=== PATIENT | female | born 1930 | race Asian ===

== ENCOUNTER 2017-08-17 08:00 | Outpatient (CLI) | payer MEDICARE, OTHER | END 2017-08-17 08:01 | disposition home or self-care (01) | LOC: LAB.R 08:00 | PROVIDERS: ATTEND Family Medicine | DX: N39.0 Urinary tract infection, site not specified (principal) | CPT/HCPCS: 87086 ==

== ENCOUNTER 2017-09-19 08:00 | Outpatient (CLI) | payer MEDICARE, OTHER | END 2017-09-19 08:01 | disposition home or self-care (01) | LOC: LAB.R 08:00 | PROVIDERS: ATTEND Family Medicine | DX: N39.0 Urinary tract infection, site not specified (principal) | CPT/HCPCS: 87086 ==

== ENCOUNTER 2017-10-12 11:21 | Outpatient (CLI) | payer MEDICARE, OTHER ==
[2017-10-12] MEDS ORDERED: IOPAMIDOL-300 100 ML VIAL ONE (11:43)
[2017-10-12] MEDS ORDERED: IOPAMIDOL-300 50 ML VIAL ONE (11:43)
[2017-10-12 12:54] LABS: ALBUMIN 3.4 g/dL (3.2-5.5); ALBUMIN/GLOBULIN RATIO 0.9 (1.0-2.2); ALKALINE PHOSPHATASE 83 IU/L (42-121); ALT ALANINE AMINOTRANSFERASE < 10 IU/L (10-60); AST ASPARTATE AMINOTRANSFERASE 14 IU/L (10-42); BILIRUBIN,TOTAL 0.6 mg/dL (0.2-1.0); BUN - BLOOD UREA NITROGEN 20 mg/dL (6-20); CALCIUM 8.7 mg/dL (8.5-10.3); CARBON DIOXIDE - CO2 28 mmol/L (21-32); CHLORIDE 100 mmol/L (101-111); CREATININE 0.9 mg/dL (0.4-1.0); GFR - MDRD 60 (>89); GLUCOSE 141 mg/dL (70-100); SODIUM 137 mmol/L (135-145)
[2017-10-12] MEDS: IOPAMIDOL-300 100 ML VIAL IVP ONE (13:25)
[2017-10-12] MEDS: IOPAMIDOL-300 50 ML VIAL PO ONE (13:26)
--- NOTE | 2017-10-12 14:51 | CT Report ---
CT OF THE ABDOMEN AND PELVIS WITH CONTRAST: 10/12/2017 CLINICAL INDICATION: Abnormal weight loss. TECHNIQUE: Axial CT images of the abdomen and pelvis were obtained with 100 mL Isovue 300 intravenously as well as oral contrast. No previous CT is available for comparison. FINDINGS: Limited evaluation of the lung bases demonstrates a trace right effusion and bibasilar fibrotic changes. ABDOMEN: The patient is status post cholecystectomy. No focal liver lesion is present. The spleen, pancreas, kidneys and adrenal glands appear unremarkable. No bowel dilatation, free gas, or free fluid is present. No abdominal adenopathy is seen. PELVIS: Sigmoid diverticulosis is present, without CT evidence of diverticulitis. No pelvic adenopathy or free fluid is present. Osseous structures demonstrate degenerative changes. IMPRESSION: NO EVIDENT ETIOLOGY FOR THE PATIENT'S ABNORMAL WEIGHT LOSS. POSTOPERATIVE CHANGES OF CHOLECYSTECTOMY. In accordance with CT protocol optimization, one or more of the following dose reduction techniques were utilized for this exam: automated exposure control, adjustment of mA and/or KV based on patient size, or use of iterative reconstructive technique. TD: 10/12/2017 14:51 MTDD
== END 2017-10-12 11:22 | disposition home or self-care (01) ==
LOC: LAB 11:21 → DI 11:22
PROVIDERS: ATTEND Family Medicine
DX: R63.4 Abnormal weight loss (principal); Z90.49 Acquired absence of other specified parts of digestive tract
CPT/HCPCS: 36415; 74177; 80053; Q9967

== ENCOUNTER 2017-10-12 13:40 | Outpatient (CLI) | payer MEDICARE, OTHER | END 2017-10-12 13:41 | disposition home or self-care (01) | LOC: LAB 13:40 | PROVIDERS: ATTEND Family Medicine | DX: R63.4 Abnormal weight loss (principal) ==

== ENCOUNTER 2017-10-13 06:21 | Day surgery (SDC) | payer MEDICARE, OTHER ==
[2017-10-13 06:36] VITALS: BP 150/64
== END 2017-10-13 06:22 | disposition home or self-care (01) ==
LOC: SDS 06:21
PROVIDERS: ATTEND Surgery
DX: Z53.9 Procedure and treatment not carried out, unspecified reason (principal)

== ENCOUNTER 2017-10-27 06:10 | Day surgery (SDC) | payer MEDICARE, OTHER ==
[2017-10-27] MEDS ORDERED: LACTATED RINGERS 1,000 ML IV ONE (07:02)
--- NOTE | 2017-10-27 07:31 | HISTORY & PHYSICAL EXAMINATION ---
HPI - History of Present Illness HPI Comment/Other: Krystle is here for colonoscopy for history of polyps and unexplained weight loss. Current Meds: CIPRO 250 MG ORAL TABLET (CIPROFLOXACIN HCL) Take one tablet by mouth twice daily for seven days PREDNISONE 20 MG ORAL TABLET (PREDNISONE) Two tablets daily for five days TRAMADOL HCL 50 MG ORAL TABLET (TRAMADOL HCL) Take one tablet by mouth twice daily as needed for pain MOBIC 7.5 MG ORAL TABLET (MELOXICAM) Take one tablet by mouth twice daily as needed for arthritis pain CLONIDINE HCL 0.1 MG ORAL TABLET (CLONIDINE HCL) Take one tablet by mouth twice daily CHLORTHALIDONE 25 MG ORAL TABLET (CHLORTHALIDONE) Take one tablet by mouth every morning JANUVIA 100 MG ORAL TABLET (SITAGLIPTIN PHOSPHATE) Take one tablet by mouth every day MICARDIS 80 MG ORAL TABLET (TELMISARTAN) Take one tablet by mouth daily TOPROL XL 100 MG ORAL TABLET EXTENDED RELEASE 24 HOUR (METOPROLOL SUCCINATE) Take one tablet by mouth daily PROTONIX 20 MG ORAL TABLET DELAYED RELEASE (PANTOPRAZOLE SODIUM) Take one tablet by mouth daily ZOCOR 40 MG ORAL TABLET (SIMVASTATIN) Take one tablet by mouth daily FREESTYLE TEST IN VITRO STRIP (GLUCOSE BLOOD) For use with daily blood glucose checks * PRECISION EXTRA GLUCOMETER MONITOR Use as directed to check blood glucose Past Medical History: Reviewed history from 06/15/2017 and no changes required: Cholecystectomy 1989 Adenomatous polyps HTN DM Hyperchol VCF L3 - [facility] ER Jul, 2015 Current Problems: DM (ICD-250.00) (QFI57-M02.9) HYPERTENSION, BENIGN ESSENTIAL (ICD-401.1) (PNV69-Z02) HYPERLIPIDEMIA (ICD-272.4) (GQW28-A37.5) Back pain, lumbar (ICD-724.2) (EDQ67-F53.5) Arthralgias (ICD-719.40) (UAX05-E75.50) Rotator cuff syndrome, right (ICD-726.10) (EWI93-P45.101) Lumbar compression fracture (ICD-733.13) (RUQ61-I35.009) Edema (ICD-782.3) (LYP73-S15.9) Palpitations (ICD-785.1) (KUL75-B01.2) Peripheral edema (ICD-782.3) (PDK67-F51.9) Cardiomegaly (ICD-429.3) (QCL26-W24.7) Congestive heart failure (ICD-428.0) (CBT16-D65.9) Antihyperlipidemic use, mcc (ICD-V58.69) (KTB57-G02.899) OSTEOARTHRITIS, HIPS, 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) (WXC09-R44.0) FATIGUE (ICD-780.79) (RPU97-W97.83) DEPRESSION (ICD-311) (LDN71-S02.9) ALLERGIC RHINITIS (ICD-477.9) (VSM68-N58.9) APPENDECTOMY, HX OF (ICD-V45.79) (HRW87-O98.49) CHOLECYSTECTOMY, HX OF (ICD-V45.79) (BXN06-K50.49) OSTEOARTHRITIS, KNEES, BILATERAL (ICD-715.96) (XTB94-Z42.9) POLYP, COLON (ICD-211.3) (FPX85-D18.5) GERD (ICD-530.81) (EFK33-Y57.9) Dizziness (ICD-780.4) (RUL60-Q57) Heart Murmur Acid Reflux Stomach Ulcer Past Surgical History: Reviewed history from 03/16/2017 and no changes required: Manisha Appendix Family History Summary: Reviewed history Last on 11/08/2014 and no changes required:09/21/2017 Father (biol.) - Has a father - Entered On: 05/27/2014 Brother (full) - Has Family History of Other Medical Problems - colon cancer - Entered On: 09/21/2017 General Comments - FH: Father: age 73 Mother: age 79 Brother colon ca. age 72 Social History: Reviewed history from 08/17/2017 and no changes required: 01/15, suicide. Vietnamese, Indian as second language. Nonsmoker. Adult son lives in [facility], daily marijuana smoker, causing patient quite a bit of stress. Lives in [place] Risk Factors: Smoked Tobacco Use: Never smoker Drug use: no Alcohol use: no Exercise: yes Times per week: 3 Type of Exercise: walking dog Review of Systems General Complains of weight loss. GI Complains of change in bowel habits and melena. CV Denies syncope. Resp Denies shortness of breath. Psych Denies anxiety. Heme Denies abnormal bruising. Problems were reviewed with the patient during this visit. Medications were reviewed with the patient during this visit. Allergies were reviewed with the patient during this visit. Allergies: * ALCOHOL (Critical) JANUVIA (SITAGLIPTIN PHOSPHATE) (Critical) Physical Exam General: well developed, well nourished, in no acute distress Lungs: clear bilaterally to A & P Heart: regular rate and rhythm, S1, S2 without murmurs, rubs, gallops, or clicks Abdomen: bowel sounds positive; abdomen soft and non-tender without masses, organomegaly, or hernias noted Pulses: pulses normal in all 4 extremities Extremities: no clubbing, cyanosis, edema, or deformity noted with normal full range of motion of all joints Cervical Nodes: no significant adenopathy Psych: alert and cooperative; normal mood and affect; normal attention span and concentration Impression & Recommendations: Problem # 1: history of colon polyps Patient will proceed with colonoscopy. PMH/PSH - Past Medical History Cardiovascular: positive: Hypertension, High cholesterol Endocrine/Autoimmune: positive: Type 2 diabetes Musculoskeletal: positive: Osteoarthritis MRSA Hx?: No - Past Surgical History General: positive: Cholecystectomy, Appendectomy Social & Family Hx - Social History Does the pt smoke?: No Smoking Status: Never smoker Does the pt drink ETOH?: No Does the pt have substance abuse?: No Meds/Allgy - Home Medications Home Medications: Ambulatory Orders Medication Instructions Recorded Confirmed Metoprolol Tartrate 100 mg PO DAILY 02/23/16 10/27/17 SITagliptin [Januvia] 100 mg PO DAILY 02/23/16 10/27/17 Chlorthalidone 25 mg PO DAILY 10/12/17 10/27/17 Pantoprazole Sodium [Protonix] 20 mg PO DAILY 10/12/17 10/27/17 Simvastatin [Zocor] 40 mg PO DAILY 10/12/17 10/12/17 cloNIDine [Catapres] 0.1 mg PO BID 10/12/17 10/27/17 Telmisartan [Micardis] 80 mg PO DAILY 10/27/17 10/27/17 Tramadol HCl 50 mg PO DAILY 10/27/17 10/27/17 - Allergies Allergies/Adverse Reactions: Allergies Allergy/AdvReac Type Severity Reaction Status Date / Time No Known Drug Allergies Allergy Verified 08/04/15 16:31 Exam - Vital Signs Vital Signs: Vital Signs x48h Temp Pulse Resp BP Pulse Ox 10/27/17 06:36 36.4 C L 76 16 186/79 H 97 Results - Lab Results Other Lab Results: Lab Results x24hrs 10/27/17 Range/Units 06:52 POC Whole Bld Glucose 122 H (70 - 100) mg/dL
[2017-10-27] MEDS ORDERED: MIDAZOLAM 2 MG/2 ML VIAL IVP ONE (07:38)
[2017-10-27] MEDS ORDERED: fentaNYL 100 MCG/2 ML VIAL IVP ONE (07:38)
[2017-10-27 08:15] VITALS: BP 122/47
== END 2017-10-27 06:11 | disposition home or self-care (01) ==
LOC: SDS 06:10
PROVIDERS: ATTEND Surgery
PROC: 0DBL8ZX Excision of Transverse Colon, Via Natural or Artificial Opening Endoscopic, Diagnostic (ICD-10-PCS; 2017-10-27)
PROC: 0DBN8ZX Excision of Sigmoid Colon, Via Natural or Artificial Opening Endoscopic, Diagnostic (ICD-10-PCS; 2017-10-27)
PROC: 0DBM8ZX Excision of Descending Colon, Via Natural or Artificial Opening Endoscopic, Diagnostic (ICD-10-PCS; principal; 2017-10-27 07:30)
DX: Z12.11 Encounter for screening for malignant neoplasm of colon (principal); D12.3 Benign neoplasm of transverse colon; K64.8 Other hemorrhoids; K63.5 Polyp of colon; I10 Essential (primary) hypertension; E11.9 Type 2 diabetes mellitus without complications; E78.5 Hyperlipidemia, unspecified
CPT/HCPCS: 45380; J7120

== ENCOUNTER 2018-02-27 17:11 | Outpatient (CLI) | payer MEDICARE, OTHER | END 2018-02-27 17:12 | disposition critical access hospital (66) | LOC: EMS 17:11 | PROVIDERS: ATTEND Surgery | DX: R41.82 Altered mental status, unspecified (principal); R26.81 Unsteadiness on feet | CPT/HCPCS: A0425; A0427 ==

== ENCOUNTER 2018-02-27 17:32 | Emergency (ER) | payer MEDICARE, OTHER ==
[2018-02-27 18:17] LABS: BASOPHILS # (AUTO) 0.1 10^3/uL (0.0-0.1); BASOPHILS % (AUTO) 0.7 %; EOSINOPHILS % (AUTO) 0.4 %; HGB - HEMOGLOBIN 11.5 g/dL (12.0-16.0); LYMPHOCYTES # (AUTO) 1.3 10^3/uL (1.5-3.5); LYMPHOCYTES % (AUTO) 12.9 %; MEAN CORPUSCULAR HEMOGLOBIN 30.4 pg (27.0-31.0); MEAN CORPUSCULAR HGB CONC 33.4 g/dL (32.0-36.0); MEAN CORPUSCULAR VOLUME 91.1 fL (81.0-99.0); MEAN PLATELET VOLUME 9.6 fL (7.9-10.8); MONOCYTES # (AUTO) 0.9 10^3/uL (0.0-1.0); MONOCYTES % (AUTO) 9.4 %; NEUTROPHILS # (AUTO) 7.7 10^3/uL (1.5-6.6); NEUTROPHILS % (AUTO) 76.6 %; PLT - PLATELET COUNT 209 10^3/uL (130-450); RED BLOOD COUNT 3.78 10^6/uL (4.20-5.40); RED CELL DISTRIBUTION WIDTH 14.2 % (12.0-15.0); WHITE BLOOD COUNT 10.1 x10^3/uL (4.8-10.8)
--- NOTE | 2018-02-27 18:30 | ED Physician Documentation ---
History of Present Illness - Stated complaint Stated Complaint: CONFUSION - Chief complaint Chief Complaint: General - History obtained from History obtained from: Patient, EMS - History of Present Illness Timing: Today (This is an 87-year-old who lives alone. She went to the eye doctor today had an eye exam, she was told everything was okay. Then she somehow she ended up at [facility] and seemed confused and was brought in by ambulance for confusion. For me she is alert and oriented and answers questions appropriately. She is s[place] tribe Mosotho speaker but speaks Yakut well but there is some language barrier because of that. She does complain of a headache and left ankle pain but it sounds like that is chronic. She said she just does not feel well generally.) Review of Systems Constitutional: denies: Fever, Chills Nose: denies: Rhinorrhea / runny nose, Congestion Cardiac: denies: Chest pain / pressure, Palpitations Respiratory: denies: Dyspnea, Cough GI: denies: Abdominal Pain PD PAST MEDICAL HISTORY - Past Medical History Cardiovascular: Hypertension, High cholesterol Endocrine/Autoimmune: Type 2 diabetes Musculoskeletal: Osteoarthritis - Past Surgical History Past Surgical History: Yes General: Cholecystectomy, Appendectomy - Present Medications Home Medications: Ambulatory Orders Medication Instructions Recorded Confirmed Metoprolol Tartrate 100 mg PO DAILY 02/23/16 10/27/17 SITagliptin [Januvia] 100 mg PO DAILY 02/23/16 10/27/17 Chlorthalidone 25 mg PO DAILY 10/12/17 10/27/17 Pantoprazole Sodium [Protonix] 20 mg PO DAILY 10/12/17 10/27/17 Simvastatin [Zocor] 40 mg PO DAILY 10/12/17 10/12/17 cloNIDine [Catapres] 0.1 mg PO BID 10/12/17 10/27/17 Telmisartan [Micardis] 80 mg PO DAILY 10/27/17 10/27/17 Tramadol HCl 50 mg PO DAILY 10/27/17 10/27/17 - Allergies Allergies/Adverse Reactions: Allergies Allergy/AdvReac Type Severity Reaction Status Date / Time No Known Drug Allergies Allergy Verified 08/04/15 16:31 - Social History Does the pt smoke?: No Smoking Status: Never smoker Does the pt drink ETOH?: No Does the pt have substance abuse?: No - Family History Family history: reports: Non contributory - Immunizations Immunizations are current?: Yes PD ED PE NORMAL - Vitals Vital signs reviewed: Yes - General General: Alert and oriented X 3, Other (When I asked her what year or month it is she gets those right. When asked her how old she is she says 86 and seems surprised when I see she is 87. She is able to remember her address. When asked her what she had for breakfast she said she was not hungry.) - HEENT HEENT: Other (She has dried fluorescein around the eyes and the left pupil is much larger than the right presumed from the eye exam.) - Neck Neck: Supple, no meningeal sign, No bony TTP - Cardiac Cardiac: RRR, No murmur - Respiratory Respiratory: No respiratory distress, Clear bilaterally - Abdomen Abdomen: Normal bowel sounds, Soft, Non tender - Back Back: No CVA TTP, No spinal TTP - Derm Derm: Normal color, Warm and dry - Extremities Extremities: Other (Left ankle is quite tender and swollen but that may be a chronic process from the history.) - Neuro Neuro: Alert and oriented X 3, 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 Eye Opening: Spontaneous Motor: Obeys Commands Verbal: Oriented GCS Score: 15 Results - Vitals Vitals: Vital Signs - 24 hr 02/27/18 02/27/18 02/27/18 17:36 18:30 19:16 Temperature 36.8 C Heart Rate 87 89 84 Respiratory 20 16 13 Rate Blood Pressure 142/73 H 136/73 H O2 Saturation 100 98 99 02/27/18 02/27/18 02/27/18 19:34 21:00 21:31 Temperature Heart Rate 85 86 81 Respiratory 24 22 15 Rate Blood Pressure 152/130 H 145/65 H 173/70 H O2 Saturation 99 100 100 Oxygen O2 Source Room air - Labs Labs: Laboratory Tests 02/27/18 02/27/18 02/27/18 18:05 18:05 18:05 WBC 10.1 RBC 3.78 L Hgb 11.5 L Hct 34.4 L MCV 91.1 MCH 30.4 MCHC 33.4 RDW 14.2 Plt Count 209 MPV 9.6 Neut # (Auto) 7.7 H Lymph # (Auto) 1.3 L [place] # (Auto) 0.9 Eos # (Auto) 0.0 Baso # (Auto) 0.1 Absolute Nucleated RBC 0.00 Nucleated RBC % 0.0 PT INR Sodium 133 L Potassium 3.6 Chloride 96 L Carbon Dioxide 29 Anion Gap 8.0 BUN 23 H Creatinine 1.1 H Estimated GFR (MDRD) 47 L Glucose 116 H Calcium 9.0 Total Bilirubin 1.6 H AST 17 ALT 10 Alkaline Phosphatase 89 Troponin I < 0.04 Total Protein 7.5 Albumin 3.3 Globulin 4.2 Albumin/Globulin Ratio 0.8 L Lipase 26 Urine Color Urine Clarity Urine pH Ur Specific [place] Urine Protein Urine Glucose (UA) Urine Ketones Urine Occult Blood Urine Nitrite Urine Bilirubin Urine Urobilinogen Ur Leukocyte Esterase Ur Microscopic Review Urine Culture Comments 02/27/18 02/27/18 18:05 20:55 WBC RBC Hgb Hct MCV MCH MCHC RDW Plt Count MPV Neut # (Auto) Lymph # (Auto) [place] # (Auto) Eos # (Auto) Baso # (Auto) Absolute Nucleated RBC Nucleated RBC % PT 12.8 H INR 1.1 Sodium Potassium Chloride Carbon Dioxide Anion Gap BUN Creatinine Estimated GFR (MDRD) Glucose Calcium Total Bilirubin AST ALT Alkaline Phosphatase Troponin I Total Protein Albumin Globulin Albumin/Globulin Ratio Lipase Urine Color YELLOW Urine Clarity CLEAR Urine pH 6.5 Ur Specific [place] 1.015 Urine Protein NEGATIVE Urine Glucose (UA) NEGATIVE Urine Ketones TRACE Urine Occult Blood NEGATIVE Urine Nitrite NEGATIVE Urine Bilirubin NEGATIVE Urine Urobilinogen 1 (NORMAL) Ur Leukocyte Esterase NEGATIVE Ur Microscopic Review NOT INDICATED Urine Culture Comments NOT INDICATED - Rads (name of study) CT Head Radiology: EMP read contemporaneously (Mild to moderate right frontal aki- convexity acute on chronic subdural and a small left chronic appearing subdural) PD MEDICAL DECISION MAKING - ED course ED course: 87-year-old woman who presents with confusion. History was somewhat limited from the patient's but I spoke with the son by phone and he arrived. The workup demonstrated a subdural. He said that he saw her yesterday and was trying to encourage her to come to the hospital then because she could not walk. She was okay a week ago. It is unclear if and when she fell. Patient does admit to a fall but it is hard to get the details out of her because the confusion. We called [place] for potential transfer at 7:[address] Reyez the neurosurgeon there called me back at 9:20 PM and accepted the patient in transfer, requests the patient be loaded with Keppra. Cobras were completed. Note she needs a higher level of care because of the lack of neuro[facility] ability at [facility]. - Sepsis Event Vital Signs: Vital Signs - 24 hr 02/27/18 02/27/18 02/27/18 17:36 18:30 19:16 Temperature 36.8 C Heart Rate 87 89 84 Respiratory 20 16 13 Rate Blood Pressure 142/73 H 136/73 H O2 Saturation 100 98 99 02/27/18 02/27/18 02/27/18 19:34 21:00 21:31 Temperature Heart Rate 85 86 81 Respiratory 24 22 15 Rate Blood Pressure 152/130 H 145/65 H 173/70 H O2 Saturation 99 100 100 Oxygen O2 Source Room air Departure - Departure Disposition: 02 Transfer Acute Care Hosp Clinical Impression: Subdural hemorrhage, Confusion Condition: Serious Discharge Date/Time: 02/27/18 21:52
[2018-02-27 18:31] LABS: ALBUMIN 3.3 g/dL (3.2-5.5); ALBUMIN/GLOBULIN RATIO 0.8 (1.0-2.2); BILIRUBIN,TOTAL 1.6 mg/dL (0.2-1.0); CREATININE 1.1 mg/dL (0.4-1.0); TOTAL PROTEIN 7.5 g/dL (6.7-8.2)
--- NOTE | 2018-02-27 19:06 | CT Report ---
Procedure Date: 02/27/2018 Accession Number: [id number] / [id number] Procedure: CT - Head W/O CPT Code: FULL RESULT: EXAM: CT HEAD EXAM DATE: 02/27/2018 06:42 PM. CLINICAL HISTORY: Headache. Confusion. COMPARISON: Head CT 11/01/2008. TECHNIQUE: Multiaxial CT images were obtained from the foramen magnum to the vertex. Reformats: Coronal. IV contrast: None. In accordance with CT protocol optimization, one or more of the following dose reduction techniques were utilized for this exam: automated exposure control, adjustment of mA and/or KV based on patient size, or use of iterative reconstructive technique. FINDINGS: Parenchyma: No intraparenchymal hemorrhage. No evidence of mass, midline shift, or CT findings of acute infarction. See below. Klein-white differentiation is distinct. Mild bilateral chronic microangiopathic white matter changes are evident. Extraaxial Spaces: New mild to moderate right frontal hemiconvexity acute on chronic subdural hematoma, measures 1.3 cm in width on coronal image 16. This causes mild mass effect on the right cerebral hemisphere. No midline shift or downward herniation. Small left frontal hemiconvexity chronic-appearing subdural hematoma, measures 8 mm in width on image 21, without significant mass effect on the left cerebral hemisphere. Ventricles: The ventricles and cortical sulci are prominent, consistent with mild diffuse age-related tissue loss. Sinuses and orbits: Imaged paranasal sinuses, orbits, and mastoids show no significant abnormality. Bones: No evidence of fracture or calvarial defect. IMPRESSION: 1. New mild to moderate right frontal hemiconvexity acute on chronic subdural hematoma. This causes mild mass effect on the right cerebral hemisphere. No midline shift or downward herniation. Small left frontal hemiconvexity chronic appearing subdural hematoma. See above. 2. Chronic senescent changes. RADIA The above findings were discussed with Nathan Aguilar by Dr. Miley Real at 19:03 hrs on 02/27/18.
--- NOTE | 2018-02-27 19:07 | XRAY Report ---
Procedure Date: 02/27/2018 Accession Number: [id number] / [id number] Procedure: XR - Ankle 3 View LT CPT Code: FULL RESULT: EXAM: LEFT ANKLE RADIOGRAPHY EXAM DATE: 02/27/2018 06:53 PM. CLINICAL HISTORY: Ankle pain. COMPARISON: None. TECHNIQUE: 4 views. FINDINGS: Bones: 4 x 2 mm flake fracture off the inferior aspect of the medial malleolus. No adjacent edema. Joints: Normal. No effusion. No subluxations. The ankle mortise is normally aligned. Soft Tissues: Large osteophytes and a moderate amount of dystrophic calcifications at the calcaneal insertions of the normal caliber Achilles tendon and plantar fascia. IMPRESSION: 1. Tiny flake fracture medial malleolus of indeterminate age. Correlate clinically to determine significance. 2. Suspect remote plantar fasciitis and Achilles calcific tendinitis. RADIA
[2018-02-27 19:12] LABS: INR 1.1 (0.8-1.2); PT - PROTHROMBIN TIME 12.8 secs (9.9-12.6)
[2018-02-27 21:02] LABS: BILIRUBIN,URINE NEGATIVE (NEGATIVE); GLUCOSE, URINE (UA) NEGATIVE (NEGATIVE); KETONES,URINE (UA) TRACE mg/dL (NEGATIVE); LEUKOCYTE ESTERASE, URINE NEGATIVE (NEGATIVE); NITRITE,URINE NEGATIVE (NEGATIVE); OCCULT BLOOD,URINE NEGATIVE (NEGATIVE); PH,URINE 6.5 PH (5.0-7.5); PROTEIN,URINE NEGATIVE (NEGATIVE); UROBILINOGEN,URINE 1 (NORMAL) E.U./dL (NORMAL)
[2018-02-27 21:03] LABS: CLARITY,URINE CLEAR (CLEAR)
[2018-02-27] MEDS ORDERED: levETIRAcetam INJ 1,000 MG in SODIUM CHLORIDE 0.9% 100ML 100 ML IV STA (21:22)
[2018-02-27 21:33] VITALS: BP 173/70
== END 2018-02-27 21:52 | disposition short-term general hospital (02) ==
LOC: EDUNIT# → ED 17:32 → SUPCPDRO 17:32 → ED 21:52
DX: I62.00 Nontraumatic subdural hemorrhage, unspecified (principal); R41.0 Disorientation, unspecified; I10 Essential (primary) hypertension; E11.9 Type 2 diabetes mellitus without complications; E78.00 Pure hypercholesterolemia, unspecified
CPT/HCPCS: 36415; 70450; 80053; 81001; 81003; 83690; 84484; 85025; 85610; 87086; 96365; 99284; 99285

== ENCOUNTER 2018-02-27 21:56 | Outpatient (CLI) | payer MEDICARE, OTHER | END 2018-02-27 21:57 | disposition short-term general hospital (02) | LOC: EMS 21:56 | PROVIDERS: ATTEND Surgery | DX: I62.00 Nontraumatic subdural hemorrhage, unspecified (principal) | CPT/HCPCS: A0170; A0425; A0426 ==

== ENCOUNTER 2018-04-28 08:00 | Outpatient (CLI) | payer MEDICARE, OTHER ==
[2018-04-28 19:01] LABS: BASOPHILS # (AUTO) 0.1 10^3/uL (0.0-0.1); BASOPHILS % (AUTO) 0.6 %; EOSINOPHILS # (AUTO) 0.2 10^3/uL (0.0-0.7); EOSINOPHILS % (AUTO) 1.7 %; HGB - HEMOGLOBIN 12.4 g/dL (12.0-16.0); LYMPHOCYTES # (AUTO) 1.4 10^3/uL (1.5-3.5); LYMPHOCYTES % (AUTO) 15.5 %; MEAN CORPUSCULAR HEMOGLOBIN 31.4 pg (27.0-31.0); MEAN CORPUSCULAR HGB CONC 34.1 g/dL (32.0-36.0); MEAN CORPUSCULAR VOLUME 92.2 fL (81.0-99.0); MEAN PLATELET VOLUME 10.5 fL (7.9-10.8); MONOCYTES # (AUTO) 0.6 10^3/uL (0.0-1.0); MONOCYTES % (AUTO) 7.1 %; NEUTROPHILS # (AUTO) 6.9 10^3/uL (1.5-6.6); NEUTROPHILS % (AUTO) 75.1 %; PLT - PLATELET COUNT 225 10^3/uL (130-450); RED BLOOD COUNT 3.94 10^6/uL (4.20-5.40); RED CELL DISTRIBUTION WIDTH 14.9 % (12.0-15.0); WHITE BLOOD COUNT 9.2 x10^3/uL (4.8-10.8)
[2018-04-28 19:30] LABS: ALBUMIN 3.8 g/dL (3.2-5.5); ALBUMIN/GLOBULIN RATIO 1.1 (1.0-2.2); ALKALINE PHOSPHATASE 60 IU/L (42-121); ALT ALANINE AMINOTRANSFERASE 11 IU/L (10-60); AST ASPARTATE AMINOTRANSFERASE 18 IU/L (10-42); BILIRUBIN,TOTAL 0.9 mg/dL (0.2-1.0); BUN - BLOOD UREA NITROGEN 18 mg/dL (6-20); CALCIUM 9.1 mg/dL (8.5-10.3); CARBON DIOXIDE - CO2 27 mmol/L (21-32); CHLORIDE 103 mmol/L (101-111); CREATININE 0.7 mg/dL (0.4-1.0); GFR - MDRD 80 (>89); GLUCOSE 170 mg/dL (70-100); SODIUM 138 mmol/L (135-145); TOTAL PROTEIN 7.3 g/dL (6.7-8.2)
[2018-04-28 19:51] LABS: HB2 TOTAL 12.8 g/dL; HEMOGLOBIN A1C 0.46 g/dL; HEMOGLOBIN A1C % 5.4 % (4.6-6.2)
== END 2018-04-28 08:01 | disposition home or self-care (01) ==
LOC: LAB.WCP 08:00
PROVIDERS: ATTEND Family Medicine
DX: E11.9 Type 2 diabetes mellitus without complications (principal); E78.5 Hyperlipidemia, unspecified; I10 Essential (primary) hypertension
CPT/HCPCS: 36415; 80053; 82043; 83036; 84443; 85025

== ENCOUNTER 2018-06-23 17:32 | Emergency (ER) | payer MEDICARE, OTHER ==
[2018-06-23 17:45] VITALS: BP 164/69
--- NOTE | 2018-06-23 19:39 | ED Physician Documentation ---
History of Present Illness - Stated complaint Stated Complaint: R ARM PX/NO INJ - Chief complaint Chief Complaint: Ext Problem - History obtained from History obtained from: Patient - History of Present Illness Timing: How many days ago (several) Pain level max: 8 Pain level now: 3 Improved by: Rest Worsened by: Movement - Additonal information Additional information: Patient is an 88-year-old female who presents to the emergency department with swelling to the right hand. She denies any injury. States is been present for the past 3-4 days. Does not recall any injury. States the hand does hurt slightly, most of the pain is on the ulnar aspect of the wrist, distal ulna. She also has pain with Supination and pronation of the arm. Denies any pain however at the radial head, it was all at the wrist. She also states that sometimes her shoulder hurts. Review of Systems Constitutional: denies: Fever, Chills GI: denies: Vomiting, Diarrhea Skin: denies: Rash Musculoskeletal: denies: Neck pain, Back pain Neurologic: denies: Headache PD PAST MEDICAL HISTORY - Past Medical History Past Medical History: No Cardiovascular: Hypertension, High cholesterol Respiratory: None Neuro: None Endocrine/Autoimmune: Type 2 diabetes GI: None ROOMS DIRECTOR: None : None HEENT: None Psych: None Musculoskeletal: Osteoarthritis Derm: None - Past Surgical History Past Surgical History: Yes General: Cholecystectomy, Appendectomy - Present Medications Home Medications: Ambulatory Orders Medication Instructions Recorded Confirmed Metoprolol Tartrate 100 mg PO DAILY 02/23/16 10/27/17 SITagliptin [Januvia] 100 mg PO DAILY 02/23/16 10/27/17 Chlorthalidone 25 mg PO DAILY 10/12/17 10/27/17 Pantoprazole Sodium [Protonix] 20 mg PO DAILY 10/12/17 10/27/17 Simvastatin [Zocor] 40 mg PO DAILY 10/12/17 10/12/17 cloNIDine [Catapres] 0.1 mg PO BID 10/12/17 10/27/17 Telmisartan [Micardis] 80 mg PO DAILY 10/27/17 10/27/17 Tramadol HCl 50 mg PO DAILY 10/27/17 10/27/17 Meloxicam [Mobic] 7.5 mg PO DAILY PRN #20 tablet 06/23/18 - Allergies Allergies/Adverse Reactions: Allergies Allergy/AdvReac Type Severity Reaction Status Date / Time No Known Drug Allergies Allergy Verified 06/23/18 17:45 - Social History Does the pt smoke?: No Smoking Status: Never smoker Does the pt drink ETOH?: No Does the pt have substance abuse?: No - Immunizations Immunizations are current?: Yes - POLST Patient has POLST: No PD ED PE NORMAL - Vitals Vital signs reviewed: Yes - General General: Alert and oriented X 3, No acute distress - Derm Derm: Warm and dry - Extremities Extremities: Other (R arm - Diffuse swelling of the right hand, no erythema, warmth. NVI. There is tenderness along the distal ulna and slight tenderness over the dorsum of the hand. There is no tenderness over the remainder of the arm. Full range of motion present. Neurovascularly intact) - Neuro Neuro: Alert and oriented X 3 - Psych Psych: Normal mood, Normal affect Results - Vitals Vitals: Vital Signs - 24 hr 06/23/18 06/23/18 06/23/18 17:39 20:20 21:03 Temperature 36 C L Heart Rate 72 Respiratory 16 16 16 Rate Blood Pressure 164/69 H O2 Saturation 97 Oxygen O2 Source Room air - Rads (name of study) Right hand x-ray Radiology: Prelim report reviewed, EMP read contemporaneously, See rad report (Extensive edema. Exclude cellulitis. no acute bony abnormality.) Right wrist x-ray Radiology: Prelim report reviewed, EMP read contemporaneously, See rad report (No bony abnormality to account for the wrist and hand edema. ) PD MEDICAL DECISION MAKING - ED course Complexity details: considered differential, d/w patient ED course: Patient is an 88-year-old female with edema of the right hand, possible osteoarthritis related? No deformity. No acute findings on x-ray. Will trial on meloxicam and see how she progresses over the next few days. We will have her follow-up with her doctor for further care. No evidence of DVT, vascular issue or RSD Patient counseled regarding signs and symptoms for which I believe and urgent re-evaluation would be necessary. Patient with good understanding of and agreement to plan and is comfortable going home at this time This document was made in part using voice recognition software. While efforts are made to proofread this document, sound alike and grammatical errors may occur. Departure - Departure Disposition: 01 Home, Self Care Clinical Impression: Peripheral edema Condition: Good Instructions: Osteoarthritis Follow-Up: Gael Johnson MD [Primary Care Provider] - Within 1 week Prescriptions: Meloxicam [Mobic] 7.5 mg PO DAILY PRN #20 tablet PRN Reason: Pain Comments: Take the medications as prescribed. Return if you worsen. your xrays are normal tonight. Discharge Date/Time: 06/23/18 21:04
--- NOTE | 2018-06-23 20:16 | XRAY Report ---
Reason: R hand pain/swelling Procedure Date: 06/23/2018 Accession Number: [id number] / [id number] Procedure: XR - Hand 3 View RT CPT Code: FULL RESULT: EXAM: RIGHT HAND RADIOGRAPHY EXAM DATE: 06/23/2018 07:57 PM. CLINICAL HISTORY: Right hand pain/swelling. No apparent injury. COMPARISON: None. TECHNIQUE: 4 views. FINDINGS: Bones: Normal. No fractures or bone lesions. Joints: Moderate inflammatory arthropathy involving the interphalangeal joints, greatest at the right second DIP and right third PIP joints. Much lesser degree of inflammatory arthropathy involving the MCP joints. No subluxation. No degenerative changes involving the radiocarpal nor intercarpal joints. Soft Tissues: Marked diffuse edema. No air nor radiopaque foreign body. IMPRESSION: 1. Extensive edema. Exclude cellulitis. 2. No acute bony abnormality. RADIA
--- NOTE | 2018-06-23 20:17 | XRAY Report ---
Reason: R wrist pain/swelling Procedure Date: 06/23/2018 Accession Number: [id number] / [id number] Procedure: XR - Wrist 3 View RT CPT Code: FULL RESULT: EXAM: RIGHT WRIST RADIOGRAPHY EXAM DATE: 06/23/2018 07:57 PM. CLINICAL HISTORY: Right wrist pain/swelling. No apparent injury. COMPARISON: None. TECHNIQUE: 3 views. FINDINGS: Bones: Normal. No fractures or bone lesions. Joints: Normal. No subluxations. Soft Tissues: Marked diffuse edema. IMPRESSION: No bony abnormality to account for the wrist and hand edema. RADIA
[2018-06-23] MEDS ORDERED: MELOXICAM 7.5 MG TABLET PO STA (20:56)
== END 2018-06-23 21:04 | disposition home or self-care (01) ==
LOC: ED 17:32
DX: I10 Essential (primary) hypertension (principal); E11.9 Type 2 diabetes mellitus without complications; R60.0 Localized edema
CPT/HCPCS: 73110; 73130; 99283; A9270

== ENCOUNTER 2018-08-01 08:00 | Outpatient (CLI) | payer MEDICARE, OTHER ==
[2018-08-01 19:25] LABS: BASOPHILS # (AUTO) 0.1 10^3/uL (0.0-0.1); BASOPHILS % (AUTO) 0.7 %; EOSINOPHILS # (AUTO) 0.2 10^3/uL (0.0-0.7); HGB - HEMOGLOBIN 11.5 g/dL (12.0-16.0); LYMPHOCYTES # (AUTO) 1.1 10^3/uL (1.5-3.5); LYMPHOCYTES % (AUTO) 12.1 %; MEAN CORPUSCULAR HEMOGLOBIN 29.5 pg (27.0-31.0); MEAN CORPUSCULAR HGB CONC 32.4 g/dL (32.0-36.0); MEAN CORPUSCULAR VOLUME 90.9 fL (81.0-99.0); MEAN PLATELET VOLUME 10.4 fL (7.9-10.8); MONOCYTES # (AUTO) 0.5 10^3/uL (0.0-1.0); MONOCYTES % (AUTO) 5.3 %; NEUTROPHILS # (AUTO) 7.6 10^3/uL (1.5-6.6); NEUTROPHILS % (AUTO) 79.9 %; PLT - PLATELET COUNT 254 10^3/uL (130-450); RED BLOOD COUNT 3.91 10^6/uL (4.20-5.40); RED CELL DISTRIBUTION WIDTH 13.6 % (12.0-15.0); WHITE BLOOD COUNT 9.5 x10^3/uL (4.8-10.8)
[2018-08-01 19:58] LABS: ALBUMIN 3.6 g/dL (3.2-5.5); ALBUMIN/GLOBULIN RATIO 0.9 (1.0-2.2); ALKALINE PHOSPHATASE 91 IU/L (42-121); ALT ALANINE AMINOTRANSFERASE 11 IU/L (10-60); AST ASPARTATE AMINOTRANSFERASE 18 IU/L (10-42); BILIRUBIN,TOTAL 0.4 mg/dL (0.2-1.0); BUN - BLOOD UREA NITROGEN 22 mg/dL (6-20); CALCIUM 8.9 mg/dL (8.5-10.3); CARBON DIOXIDE - CO2 27 mmol/L (21-32); CHLORIDE 102 mmol/L (101-111); CHOL/HDL RATIO 2.3 (<4.4); CHOLESTEROL 102 mg/dL; CREATININE 0.5 mg/dL (0.4-1.0); GFR - MDRD 117 (>89); GLUCOSE 233 mg/dL (70-100); HDL CHOLESTEROL 44 mg/dL; LDL CHOLESTEROL,CALCULATED 40 mg/dL; LDL/HDL RATIO 0.9 (<4.4); SODIUM 137 mmol/L (135-145); TOTAL PROTEIN 7.4 g/dL (6.7-8.2); VLDL CHOLESTEROL 18 mg/dL
[2018-08-01 20:12] LABS: HB2 TOTAL 11.7 g/dL; HEMOGLOBIN A1C 0.5 g/dL; HEMOGLOBIN A1C % 6.1 % (4.6-6.2)
== END 2018-08-01 23:59 | disposition home or self-care (01) ==
LOC: LAB.WCP 08:00
PROVIDERS: ATTEND Family Medicine
DX: E11.9 Type 2 diabetes mellitus without complications (principal); I10 Essential (primary) hypertension
CPT/HCPCS: 36415; 80053; 80061; 83036; 83721; 84443; 85025

== ENCOUNTER 2018-10-16 22:41 | Outpatient (CLI) | payer MEDICARE, OTHER | END 2018-10-16 22:42 | disposition critical access hospital (66) | LOC: EMS 22:41 | PROVIDERS: ATTEND Surgery | DX: R51 Headache (principal); R25.2 Cramp and spasm; M54.2 Cervicalgia; H54.7 Unspecified visual loss | CPT/HCPCS: A0425; A0429 ==

== ENCOUNTER 2018-10-16 23:00 | Emergency (ER) | payer MEDICARE, OTHER ==
[2018-10-16] MEDS ORDERED: LORazepam 2 MG/ML VIAL IVP STA (23:05)
[2018-10-16 23:18] LABS: BASOPHILS # (AUTO) 0.1 10^3/uL (0.0-0.1); BASOPHILS % (AUTO) 0.8 %; EOSINOPHILS # (AUTO) 0.1 10^3/uL (0.0-0.7); EOSINOPHILS % (AUTO) 1.3 %; HGB - HEMOGLOBIN 11.5 g/dL (12.0-16.0); LYMPHOCYTES # (AUTO) 2.2 10^3/uL (1.5-3.5); LYMPHOCYTES % (AUTO) 19.6 %; MEAN CORPUSCULAR HEMOGLOBIN 29.6 pg (27.0-31.0); MEAN CORPUSCULAR HGB CONC 33.9 g/dL (32.0-36.0); MEAN CORPUSCULAR VOLUME 87.5 fL (81.0-99.0); MEAN PLATELET VOLUME 9.5 fL (7.9-10.8); MONOCYTES # (AUTO) 0.6 10^3/uL (0.0-1.0); MONOCYTES % (AUTO) 5.7 %; NEUTROPHILS # (AUTO) 8.3 10^3/uL (1.5-6.6); NEUTROPHILS % (AUTO) 72.6 %; PLT - PLATELET COUNT 239 10^3/uL (130-450); RED BLOOD COUNT 3.87 10^6/uL (4.20-5.40); RED CELL DISTRIBUTION WIDTH 14.5 % (12.0-15.0); WHITE BLOOD COUNT 11.4 x10^3/uL (4.8-10.8)
[2018-10-16 23:31] LABS: ACETAMINOPHEN < 10 ug/mL (10-30); ALBUMIN 3.3 g/dL (3.2-5.5); ALBUMIN/GLOBULIN RATIO 0.8 (1.0-2.2); ALKALINE PHOSPHATASE 89 IU/L (42-121); ALT ALANINE AMINOTRANSFERASE 11 IU/L (10-60); AST ASPARTATE AMINOTRANSFERASE 16 IU/L (10-42); BILIRUBIN,TOTAL 0.9 mg/dL (0.2-1.0); BUN - BLOOD UREA NITROGEN 17 mg/dL (6-20); CALCIUM 8.8 mg/dL (8.5-10.3); CARBON DIOXIDE - CO2 26 mmol/L (21-32); CHLORIDE 99 mmol/L (101-111); CREATININE 0.7 mg/dL (0.4-1.0); GFR - MDRD 79 (>89); GLUCOSE 146 mg/dL (70-100); LIPASE 32 U/L (22-51); SALICYLATE < 6.0 mg/dL; SODIUM 136 mmol/L (135-145); TOTAL PROTEIN 7.3 g/dL (6.7-8.2)
[2018-10-16 23:56] LABS: BILIRUBIN,URINE NEGATIVE (NEGATIVE); GLUCOSE, URINE (UA) NEGATIVE (NEGATIVE); KETONES,URINE (UA) NEGATIVE (NEGATIVE); LEUKOCYTE ESTERASE, URINE SMALL (NEGATIVE); NITRITE,URINE NEGATIVE (NEGATIVE); OCCULT BLOOD,URINE TRACE-INTA (NEGATIVE); PH,URINE 7.5 PH (5.0-7.5); PROTEIN,URINE NEGATIVE (NEGATIVE); UROBILINOGEN,URINE 1 (NORMAL) E.U./dL (NORMAL)
[2018-10-16 23:57] LABS: CLARITY,URINE HAZY (CLEAR)
--- NOTE | 2018-10-17 | CT Report ---
Reason: R face and arm twitching Procedure Date: 10/16/2018 Accession Number: [id number] / [id number] Procedure: CT - Head W/O CPT Code: FULL RESULT: EXAM: CT HEAD EXAM DATE: 10/16/2018 11:25 PM. CLINICAL HISTORY: Right face and arm twitching. COMPARISON: Head CT 02/27/2018. TECHNIQUE: Multiaxial CT images were obtained from the foramen magnum to the vertex. Reformats: Sagittal and coronal. IV contrast: None. In accordance with CT protocol optimization, one or more of the following dose reduction techniques were utilized for this exam: automated exposure control, adjustment of mA and/or KV based on patient size, or use of iterative reconstructive technique. FINDINGS: Parenchyma: No intraparenchymal hemorrhage. No evidence of mass, midline shift, or CT findings of infarction. Klein-white differentiation is distinct. Extraaxial Spaces: There is a low density subdural fluid collection overlying lateral aspects of left frontal and left temporal lobes. This measures up to 5 mm in width. Prior right hemispheric subdural collection is resolved. No subdural or epidural collections identified. Ventricles: Normal in size and position. Sinuses and Orbits: Imaged paranasal sinuses, orbits, and mastoids show no significant abnormality. Bones: No evidence of fracture or calvarial defect. Other: None. IMPRESSION: 1. Small subdural hygroma or remote hematoma overlying left cerebral hemisphere. 2. Otherwise unremarkable head CT. RADIA
--- NOTE | 2018-10-17 00:02 | ED Physician Documentation ---
History of Present Illness - Stated complaint Stated Complaint: HEADACHE, WEAKNESS - Chief complaint Chief Complaint: Neuro - History obtained from History obtained from: Patient, EMS - History of Present Illness Timing: Today Pain level max: 8 Pain level now: 8 - Additonal information Additional information: 88-year-old female presents to the emergency department with a headache today. This is been ongoing. No fevers. No trauma. Has had an intracranial hemorrhage in the past, family is concerned with potential same today. She also has chronic twitching to the right side of the face and right arm. Seems worse tonight. Has not been ill recently. Family states she does not drink much at home. Worse with light and sound. Nothing makes it better. Review of Systems Ten Systems: 10 systems reviewed and negative Constitutional: denies: Fever, Chills Ears: denies: Ear pain Nose: denies: Rhinorrhea / runny nose, Congestion Throat: denies: Sore throat Respiratory: denies: Cough, Wheezing GI: denies: Abdominal Pain, Nausea, Vomiting, Diarrhea Skin: denies: Rash Musculoskeletal: denies: Neck pain, Back pain Neurologic: denies: Focal weakness, Numbness, Confused, Altered mental status, Head injury, LOC PD PAST MEDICAL HISTORY - Past Medical History Cardiovascular: Hypertension, High cholesterol Respiratory: None Neuro: None Endocrine/Autoimmune: Type 2 diabetes GI: None [employer]: None : None HEENT: None Psych: None Musculoskeletal: Osteoarthritis Derm: None - Past Surgical History Past Surgical History: Yes General: Cholecystectomy, Appendectomy - Present Medications Home Medications: Ambulatory Orders Medication Instructions Recorded Confirmed Pantoprazole Sodium [Protonix] 20 mg PO DAILY 10/12/17 10/16/18 Simvastatin [Zocor] 40 mg PO DAILY 10/12/17 10/16/18 Telmisartan [Micardis] 80 mg PO DAILY 10/27/17 10/16/18 Meloxicam [Mobic] 7.5 mg PO DAILY PRN #20 tablet 06/23/18 10/16/18 SITagliptin [Januvia] 1 tab PO DAILY 10/16/18 10/16/18 Sucralfate [Carafate] 1 gm PO QID 10/16/18 10/16/18 amLODIPine [Norvasc] 5 mg PO DAILY 10/16/18 10/16/18 - Allergies Allergies/Adverse Reactions: Allergies Allergy/AdvReac Type Severity Reaction Status Date / Time No Known Drug Allergies Allergy Verified 10/16/18 23:09 - Social History Does the pt smoke?: No Smoking Status: Never smoker Does the pt drink ETOH?: No Does the pt have substance abuse?: No - Immunizations Immunizations are current?: Yes - POLST Patient has POLST: No PD ED PE NORMAL - Vitals Vital signs reviewed: Yes - General General: Alert and oriented X 3, No acute distress - HEENT HEENT: Atraumatic, PERRL, Ears normal, Moist mucous membranes, Pharynx benign - Neck Neck: Supple, no meningeal sign, No bony TTP - Cardiac Cardiac: RRR - Respiratory Respiratory: No respiratory distress, Clear bilaterally - Abdomen Abdomen: Soft, Non tender, Non distended - Back Back: No spinal TTP - Derm Derm: Warm and dry - Extremities Extremities: Other (Limited use of the right arm. This is baseline.) - Neuro Neuro: Alert and oriented X 3 - Psych Psych: Normal mood, Normal affect Results - Vitals Vitals: Vital Signs - 24 hr 10/16/18 10/16/18 10/17/18 23:01 23:28 00:05 Temperature 37.4 C Heart Rate 118 H 109 H 101 H Respiratory 18 20 18 Rate Blood Pressure 180/84 H 153/79 H 141/72 H O2 Saturation 96 100 98 10/17/18 10/17/18 00:24 01:42 Temperature Heart Rate 94 80 Respiratory 18 18 Rate Blood Pressure 128/69 167/68 H O2 Saturation 95 97 Oxygen O2 Source Room air - Labs Labs: Laboratory Tests 10/16/18 10/16/18 10/16/18 23:05 23:05 23:05 WBC 11.4 H RBC 3.87 L Hgb 11.5 L Hct 33.9 L MCV 87.5 MCH 29.6 MCHC 33.9 RDW 14.5 Plt Count 239 MPV 9.5 Neut # (Auto) 8.3 H Lymph # (Auto) 2.2 Greer # (Auto) 0.6 Eos # (Auto) 0.1 Baso # (Auto) 0.1 Absolute Nucleated RBC 0.00 Nucleated RBC % 0.0 Sodium 136 Potassium 3.6 Chloride 99 L Carbon Dioxide 26 Anion Gap 11.0 BUN 17 Creatinine 0.7 Estimated GFR (MDRD) 79 L Glucose 146 H Calcium 8.8 Total Bilirubin 0.9 AST 16 ALT 11 Alkaline Phosphatase 89 Total Protein 7.3 Albumin 3.3 Globulin 4.0 Albumin/Globulin Ratio 0.8 L Lipase 32 TSH 0.58 Urine Color Urine Clarity Urine pH Ur Specific Gilbert Urine Protein Urine Glucose (UA) Urine Ketones Urine Occult Blood Urine Nitrite Urine Bilirubin Urine Urobilinogen Ur Leukocyte Esterase Urine RBC Urine WBC Urine WBC Clumps Ur Epithelial Cells Ur Squamous Epith Cells Urine Crystals Amorphous Sediment Urine Bacteria Urine Casts Urine Starch Urine Mucus Urine Trichomonas Urine Yeast Urine Sperm Ur Oval Fat Bodies Ur Microscopic Review Urine Culture Comments Salicylates < 6.0 Urine Opiates Screen Ur Oxycodone Screen Urine Methadone Screen Ur Propoxyphene Screen Acetaminophen < 10 L Ur Barbiturates Screen Ur Tricyclics Screen Ur Phencyclidine Scrn Ur Amphetamine Screen U Methamphetamines Scrn U Benzodiazepines Scrn Urine Cocaine Screen U Cannabinoids Screen Ethyl Alcohol < 5.0 10/16/18 23:40 WBC RBC Hgb Hct MCV MCH MCHC RDW Plt Count MPV Neut # (Auto) Lymph # (Auto) Greer # (Auto) Eos # (Auto) Baso # (Auto) Absolute Nucleated RBC Nucleated RBC % Sodium Potassium Chloride Carbon Dioxide Anion Gap BUN Creatinine Estimated GFR (MDRD) Glucose Calcium Total Bilirubin AST ALT Alkaline Phosphatase Total Protein Albumin Globulin Albumin/Globulin Ratio Lipase TSH Urine Color YELLOW Urine Clarity HAZY Urine pH 7.5 Ur Specific Gilbert 1.015 Urine Protein NEGATIVE Urine Glucose (UA) NEGATIVE Urine Ketones NEGATIVE Urine Occult Blood TRACE-INTA Urine Nitrite NEGATIVE Urine Bilirubin NEGATIVE Urine Urobilinogen 1 (NORMAL) Ur Leukocyte Esterase SMALL H Urine RBC Cancelled Urine WBC Cancelled Urine WBC Clumps Cancelled Ur Epithelial Cells Cancelled Ur Squamous Epith Cells Cancelled Urine Crystals Cancelled Amorphous Sediment Cancelled Urine Bacteria Cancelled Urine Casts Cancelled Urine Starch Cancelled Urine Mucus Cancelled Urine Trichomonas Cancelled Urine Yeast Cancelled Urine Sperm Cancelled Ur Oval Fat Bodies Cancelled Ur Microscopic Review INDICATED Urine Culture Comments Not Reportable Salicylates Urine Opiates Screen Cancelled Ur Oxycodone Screen Cancelled Urine Methadone Screen Cancelled Ur Propoxyphene Screen Cancelled Acetaminophen Ur Barbiturates Screen Cancelled Ur Tricyclics Screen Cancelled Ur Phencyclidine Scrn Cancelled Ur Amphetamine Screen Cancelled U Methamphetamines Scrn Cancelled U Benzodiazepines Scrn Cancelled Urine Cocaine Screen Cancelled U Cannabinoids Screen Cancelled Ethyl Alcohol - Rads (name of study) Head CT Radiology: Prelim report reviewed, EMP read contemporaneously, See rad report (Small subdural hygroma or remote hematoma overlying left cerebral hemisphere. 2. Otherwise unremarkable head CT. ) PD MEDICAL DECISION MAKING - ED course Complexity details: reviewed results, re-evaluated patient, considered differential, d/w patient, d/w family ED course: 88-year-old female presents to the emergency department with a headache today. Resolved with Ativan. Has chronic right-sided facial twitching and right arm twitching. This also improved with Ativan. She is well-appearing, nontoxic. Afebrile. No evidence of stroke. Will follow up with her PCP for further care. Patient and family counseled regarding signs and symptoms for which I believe and urgent re-evaluation would be necessary. Patient with good understanding of and agreement to plan and is comfortable going home at this time This document was made in part using voice recognition software. While efforts are made to proofread this document, sound alike and grammatical errors may occur. Departure - Departure Disposition: 01 Home, Self Care Clinical Impression: Headache Qualifiers: Headache type: unspecified Headache chronicity pattern: acute headache Intractability: not intractable Qualified Code(s): R51 - Headache Condition: Good Instructions: ED Cephalgia Unspecified Follow-Up: Gael Johnson MD [Primary Care Provider] - Within 1 week Comments: Return if she worsens. Follow-up with your doctor for further care. NIHSS - Time Time: 23:30 - Level of Consciousness Level of consciousness: (0) Alert, Keenly responsive LOC Questions: (0) Answers both Q's correct LOC Commands: (0) Performs both correctly - Gaze Best Gaze: (0) Normal - Visual Visual: (0) No loss - Facial Palsy Facial Palsy: (0) Normal, symmetrical movement (Right side twitching) - Motor Arms (both separate) Motor Arm (right): (0) No drift (Held in flexion, baseline for patient) Motor Arm (left): (0) No drift - Motor Legs (both separate) Motor Leg (right): (0) No drift Motor Leg (left): (0) No drift - Limb Ataxia Limb Ataxia: (0) Absent - Sensory Sensory: (0) Normal - Best Language Best Language: (0) No aphasia - Dysarthria Dysarthria: (0) Normal - Extinction and Inattention (formally neg Extinction and inattention: (0) No abnormality - Total Score/Results Total Score/Result: 0
[2018-10-17] MEDS ORDERED: SODIUM CHLORIDE 0.9% 1,000 ML IV ONE (00:33)
[2018-10-17 01:44] VITALS: BP 167/68
== END 2018-10-17 02:10 | disposition home or self-care (01) ==
LOC: EDBD → EDUNIT# → ED 23:00
DX: R51 Headache (principal); I10 Essential (primary) hypertension; E78.00 Pure hypercholesterolemia, unspecified; E11.9 Type 2 diabetes mellitus without complications
CPT/HCPCS: 36415; 70450; 80053; 81001; 83690; 84443; 85025; 96361; 96374; 99283; 99284; J2060; 80306; 80307; 80320; 80329; 81003; 87086

== ENCOUNTER 2019-07-28 14:02 | Outpatient (CLI) | payer MEDICARE, OTHER ==
[2019-07-28] MEDS ORDERED: GADOBUTROL 10 MMOL/10 ML VIAL ONE (14:07)
[2019-07-28] MEDS ORDERED: GADOBUTROL 10 MMOL/10 ML VIAL IVP ONE (14:55)
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
== END 2019-07-28 14:03 | disposition home or self-care (01) ==
LOC: DI 14:02
PROVIDERS: ATTEND Family Medicine
DX: S06.5X0D Traumatic subdural hemorrhage without loss of consciousness, subsequent encounter (principal); R26.89 Other abnormalities of gait and mobility
CPT/HCPCS: 70553; A9585

== ENCOUNTER 2019-10-29 13:37 | Outpatient (CLI) | payer MEDICARE, OTHER | END 2019-10-29 13:38 | disposition critical access hospital (66) | LOC: EMS 13:37 | PROVIDERS: ATTEND Surgery | DX: R10.11 Right upper quadrant pain (principal); R39.89 Other symptoms and signs involving the genitourinary system | CPT/HCPCS: A0425; A0429 ==

== ENCOUNTER 2019-10-29 13:56 | Emergency (ER) | payer MEDICARE, OTHER ==
--- NOTE | 2019-10-29 14:31 | ED Physician Documentation ---
History of Present Illness - Stated complaint Stated Complaint: ABD PX - Chief complaint Chief Complaint: Abd Pain - History obtained from History obtained from: Patient, EMS - History of Present Illness Timing: How many days ago (5) Pain level max: 5 Pain level now: 1 - Additonal information Additional information: 89-year-old female presents to the emergency department, Complaining of right upper quadrant abdominal pain intermittently for the past 5 days. Worse with movement and better with rest. Also worse with taking a deep breath. No fevers. No vomiting. No constipation or diarrhea. Has never had similar symptoms in the past. She states she has never had any abdominal surgeries in the past. Son states that she fell a while ago, patient denies this. She does live at home alone Review of Systems Ten Systems: 10 systems reviewed and negative Constitutional: denies: Fever, Chills Throat: denies: Sore throat Cardiac: denies: Chest pain / pressure Respiratory: denies: Cough GI: denies: Vomiting, Diarrhea : denies: Dysuria, Frequency, Hesitancy Skin: denies: Rash Musculoskeletal: denies: Neck pain, Back pain Neurologic: denies: Confused, Headache, Head injury, LOC PD PAST MEDICAL HISTORY - Past Medical History Cardiovascular: Hypertension, High cholesterol Respiratory: None Neuro: None Endocrine/Autoimmune: Type 2 diabetes GI: None HUC OB: None : None HEENT: None Psych: None Musculoskeletal: Osteoarthritis Derm: None - Past Surgical History Past Surgical History: Yes General: Cholecystectomy, Appendectomy - Present Medications Home Medications: Ambulatory Orders Medication Instructions Recorded Confirmed Pantoprazole Sodium [Protonix] 20 mg PO DAILY 10/12/17 10/16/18 Simvastatin [Zocor] 40 mg PO DAILY 10/12/17 10/16/18 Telmisartan [Micardis] 80 mg PO DAILY 10/27/17 10/16/18 Meloxicam [Mobic] 7.5 mg PO DAILY PRN #20 tablet 06/23/18 10/16/18 SITagliptin [Januvia] 1 tab PO DAILY 10/16/18 10/16/18 Sucralfate [Carafate] 1 gm PO QID 10/16/18 10/16/18 amLODIPine [Norvasc] 5 mg PO DAILY 10/16/18 10/16/18 Cefdinir 300 mg PO BID #14 capsule 10/29/19 - Allergies Allergies/Adverse Reactions: Allergies Allergy/AdvReac Type Severity Reaction Status Date / Time No Known Drug Allergies Allergy Verified 10/29/19 14:21 - Social History Does the pt smoke?: No Smoking Status: Never smoker Does the pt drink ETOH?: No Does the pt have substance abuse?: No - Immunizations Immunizations are current?: Yes - POLST Patient has POLST: No PD ED PE NORMAL - Vitals Vital signs reviewed: Yes - General General: Alert and oriented X 3, No acute distress - HEENT HEENT: Moist mucous membranes - Neck Neck: Supple, no meningeal sign - Cardiac Cardiac: RRR - Respiratory Respiratory: No respiratory distress, Clear bilaterally - Abdomen Abdomen: Soft, Non distended, Other (Mild tender palpation right upper quadrant. No peritoneal signs Cholecystectomy scar in place) - Back Back: No spinal TTP - Derm Derm: Warm and dry - Extremities Extremities: No edema - Neuro Neuro: Alert and oriented X 3 - Psych Psych: Normal mood, Normal affect Results - Vitals Vitals: Vital Signs - 24 hr 10/29/19 10/29/19 10/29/19 14:21 16:11 17:42 Temperature 36.9 C 36.7 C Heart Rate 73 72 80 Respiratory 16 16 16 Rate Blood Pressure 173/77 H 151/82 H 178/76 H O2 Saturation 98 98 98 10/29/19 19:19 Temperature 37.1 C Heart Rate 79 Respiratory 18 Rate Blood Pressure 142/75 H O2 Saturation 98 Oxygen O2 Source Room air - Labs Labs: Laboratory Tests 10/29/19 10/29/19 10/29/19 14:35 14:35 16:15 WBC 9.7 RBC 3.94 L Hgb 11.4 L Hct 35.2 L MCV 89.3 MCH 28.9 MCHC 32.4 RDW 13.8 Plt Count 179 MPV 11.4 H Neut # (Auto) 7.3 H Lymph # (Auto) 1.3 L Fisher # (Auto) 0.9 Eos # (Auto) 0.2 Baso # (Auto) 0.0 Absolute Nucleated RBC 0.00 Nucleated RBC % 0.0 Sodium 137 Potassium 3.6 Chloride 102 Carbon Dioxide 24 Anion Gap 11.0 BUN 18 Creatinine 0.5 Estimated GFR (MDRD) 117 Glucose 109 H Calcium 9.0 Total Bilirubin 1.2 H AST 11 ALT < 10 L Alkaline Phosphatase 64 Total Protein 7.1 Albumin 3.3 Globulin 3.8 Albumin/Globulin Ratio 0.9 L Lipase 24 Urine Color YELLOW Urine Clarity CLEAR Urine pH 7.0 Ur Specific Angelica 1.010 Urine Protein NEGATIVE Urine Glucose (UA) NEGATIVE Urine Ketones NEGATIVE Urine Occult Blood NEGATIVE Urine Nitrite POSITIVE H Urine Bilirubin NEGATIVE Urine Urobilinogen 0.2 (NORMAL) Ur Leukocyte Esterase SMALL H Urine RBC None Seen Urine WBC 4-5 Ur Squamous Epith Cells NONE SEEN Urine Bacteria Many H Ur Microscopic Review INDICATED Urine Culture Comments INDICATED - Rads (name of study) Ct abdomen/pelvis Radiology: Prelim report reviewed, EMP read contemporaneously, See rad report (1. Minimal intrahepatic and moderate extra hepatic biliary ductal dilatation, unchanged from 2018 and probably physiologic in the setting of prior cholecystectomy. Correlate with bilirubin and alkaline phosphatase. 2. Increased small right pleural effusion. Unchanged moderate right and mild left peripheral lower lobe coarse reticulation suggesting fibrosis. ) PD MEDICAL DECISION MAKING - ED course Complexity details: reviewed results, re-evaluated patient, considered differential, d/w patient ED course: Patient with a UTI. She also has a increasing small right pleural effusion. This may be causing her pain as well. Patient is well-appearing, nontoxic. Afebrile. No hypoxia. Will treat with antibiotics and have her follow-up with her doctor. Patient counseled regarding signs and symptoms for which I believe and urgent re-evaluation would be necessary. Patient with good understanding of and agreement to plan and is comfortable going home at this time This document was made in part using voice recognition software. While efforts are made to proofread this document, sound alike and grammatical errors may occur. Departure - Departure Disposition: 01 Home, Self Care Clinical Impression: Pleural effusion UTI (urinary tract infection) Qualifiers: Urinary tract infection type: acute cystitis Hematuria presence: without hematuria Qualified Code(s): N30.00 - Acute cystitis without hematuria Condition: Good Instructions: ED Effusion Pleural, ED UTI Cystitis Female Follow-Up: Gael Johnson MD [Primary Care Provider] - Within 1 week Prescriptions: Cefdinir 300 mg PO BID #14 capsule Comments: Take all antibiotics until gone. Return if you worsen. Follow-up with your doctor for further care. You also have a small right pleural effusion, this may be causing her pain as well. Follow-up with your doctor for further evaluation of this CT scan: 1. Minimal intrahepatic and moderate extra hepatic biliary ductal dilatation, unchanged from 2018 and probably physiologic in the setting of prior cholecystectomy. Correlate with bilirubin and alkaline phosphatase. 2. Increased small right pleural effusion. Unchanged moderate right and mild left peripheral lower lobe coarse reticulation suggesting fibrosis Discharge Date/Time: 10/29/19 19:24
[2019-10-29 14:40] LABS: BASOPHILS % (AUTO) 0.3 %; EOSINOPHILS # (AUTO) 0.2 10^3/uL (0.0-0.7); EOSINOPHILS % (AUTO) 1.9 %; HGB - HEMOGLOBIN 11.4 g/dL (12.0-16.0); LYMPHOCYTES # (AUTO) 1.3 10^3/uL (1.5-3.5); MEAN CORPUSCULAR HEMOGLOBIN 28.9 pg (27.0-31.0); MEAN CORPUSCULAR HGB CONC 32.4 g/dL (32.0-36.0); MEAN CORPUSCULAR VOLUME 89.3 fL (81.0-99.0); MEAN PLATELET VOLUME 11.4 fL (7.9-10.8); MONOCYTES # (AUTO) 0.9 10^3/uL (0.0-1.0); MONOCYTES % (AUTO) 8.8 %; NEUTROPHILS # (AUTO) 7.3 10^3/uL (1.5-6.6); NEUTROPHILS % (AUTO) 75.7 %; PLT - PLATELET COUNT 179 10^3/uL (130-450); RED BLOOD COUNT 3.94 10^6/uL (4.20-5.40); RED CELL DISTRIBUTION WIDTH 13.8 % (12.0-15.0); WHITE BLOOD COUNT 9.7 x10^3/uL (4.8-10.8)
[2019-10-29 14:57] LABS: ALBUMIN 3.3 g/dL (3.2-5.5); ALBUMIN/GLOBULIN RATIO 0.9 (1.0-2.2); ALKALINE PHOSPHATASE 64 IU/L (42-121); ALT ALANINE AMINOTRANSFERASE < 10 IU/L (10-60); AST ASPARTATE AMINOTRANSFERASE 11 IU/L (10-42); BILIRUBIN,TOTAL 1.2 mg/dL (0.2-1.0); BUN - BLOOD UREA NITROGEN 18 mg/dL (6-20); CARBON DIOXIDE - CO2 24 mmol/L (21-32); CHLORIDE 102 mmol/L (101-111); CREATININE 0.5 mg/dL (0.4-1.0); GFR - MDRD 117 (>89); GLUCOSE 109 mg/dL (70-100); LIPASE 24 U/L (22-51); SODIUM 137 mmol/L (135-145); TOTAL PROTEIN 7.1 g/dL (6.7-8.2)
[2019-10-29] MEDS ORDERED: IOVERSOL 320 100 ML VIAL IVP ONE ×2 (15:17→15:47)
--- NOTE | 2019-10-29 16:17 | CT Report ---
Reason: RUQ abd pain Procedure Date: 10/29/2019 Accession Number: [id number] / [id number] Procedure: CT - Abdomen/Pelvis W CPT Code: Final Report FULL RESULT: EXAM: CT ABDOMEN AND PELVIS EXAM DATE: 10/29/2019 03:46 PM. CLINICAL HISTORY: RUQ abd pain. COMPARISONS: ABDOMEN/PELVIS W/ 10/12/2017 1:14 PM. TECHNIQUE: Routine helical CT imaging was performed through the abdomen and pelvis. IV contrast: 90 mL OPTIRAY 320. Enteric contrast: No. Reconstructions: Coronal and sagittal. In accordance with CT protocol optimization, one or more of the following dose reduction techniques were utilized for this exam: automated exposure control, adjustment of mA and/or KV based on patient size, or use of iterative reconstructive technique. FINDINGS: Lung Bases: Increased small right pleural effusion. Persistent moderate right and mild left coarse peripheral lung reticulation suggesting fibrosis. Liver: Normal. No masses. Gallbladder/Bile Ducts: Vertically absent, as before. Minimal intrahepatic and moderate extrahepatic biliary ductal dilatation as before with the common bile duct measuring about 14 mm in the suprapancreatic portion. No radiopaque choledocholithiasis. Spleen: 2 small calcified granulomata. Otherwise normal. Pancreas: Normal. Adrenal Glands: Normal. Kidneys: Normal. No masses or hydronephrosis. Peritoneal Cavity/Bowel: Normal. No free fluid, free air or adenopathy. No masses or acute inflammatory process. The terminal ileum is unremarkable. The appendix is not identified. Pelvic Organs: Bladder, uterus, and ovaries are unremarkable. Vasculature: Mild aortoiliac atherosclerotic calcification without abnormal dilation. Mildly prominent parametrial veins left greater than right. 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 Moderate bilateral L4-L5 and L5-S1 facet osteoarthritis. Other: Body wall is unremarkable. IMPRESSION: 1. Minimal intrahepatic and moderate extra hepatic biliary ductal dilatation, unchanged from 2018 and probably physiologic in the setting of prior cholecystectomy. Correlate with bilirubin and alkaline phosphatase. 2. Increased small right pleural effusion. Unchanged moderate right and mild left peripheral lower lobe coarse reticulation suggesting fibrosis. RADIA
[2019-10-29 16:55] LABS: BILIRUBIN,URINE NEGATIVE (NEGATIVE); GLUCOSE, URINE (UA) NEGATIVE (NEGATIVE); KETONES,URINE (UA) NEGATIVE (NEGATIVE); LEUKOCYTE ESTERASE, URINE SMALL (NEGATIVE); NITRITE,URINE POSITIVE (NEGATIVE); OCCULT BLOOD,URINE NEGATIVE (NEGATIVE); PROTEIN,URINE NEGATIVE (NEGATIVE); UROBILINOGEN,URINE 0.2 (NORMAL) E.U./dL (NORMAL)
[2019-10-29 16:59] LABS: CLARITY,URINE CLEAR (CLEAR)
[2019-10-29 17:09] LABS: BACTERIA,URINE Many /HPF (None Seen); RBC,URINE None Seen /HPF (0-5); SQUAMOUS EPITHELIAL CELL,UR NONE SEEN (<= Few)
[2019-10-29] MEDS ORDERED: cefTRIAXone 1 GM VIAL IVP STA (17:20)
[2019-10-29 19:20] VITALS: BP 142/75
== END 2019-10-29 19:24 | disposition home or self-care (01) ==
LOC: EDUNIT# → ED 13:56
DX: J90 Pleural effusion, not elsewhere classified (principal); N30.00 Acute cystitis without hematuria; I10 Essential (primary) hypertension; E11.9 Type 2 diabetes mellitus without complications; Z79.84 Long term (current) use of oral hypoglycemic drugs
CPT/HCPCS: 36415; 51701; 74177; 80053; 81001; 83690; 85025; 87086; 87181; 96374; 99284; Q9967; 81003

== ENCOUNTER 2020-02-21 14:16 | Outpatient (CLI) | payer MEDICARE, OTHER | END 2020-02-21 14:17 | disposition EMS.NT | LOC: EMS 14:16 | PROVIDERS: ATTEND Surgery | DX: Z03.89 Encounter for observation for other suspected diseases and conditions ruled out (principal) ==

== ENCOUNTER 2020-05-13 00:14 | Emergency (ER) | payer MEDICARE, OTHER ==
--- NOTE | 2020-05-13 00:49 | ED Physician Documentation ---
PD HPI HEAD INJURY - Stated complaint Stated Complaint: HEAD PX/FALL - Chief complaint Chief Complaint: Trauma Hd/Nk - History obtained from History obtained from: Patient, Family - History of Present Illness Mechanism of head injury: Fell Where head injury occurred: Home Timing - onset: How many hours ago (1) Location of injury: Right, Back Quality of pain: Pain, Throbbing Associated symptoms: Neck pain. 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 denies: Back pain Neurologic: reports: Headache, Head injury. 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 : None HEENT: None Psych: None Musculoskeletal: Osteoarthritis Derm: None - Past Surgical History Past Surgical History: Yes General: Cholecystectomy, Appendectomy - Present Medications Home Medications: Ambulatory Orders Medication Instructions Recorded Confirmed Pantoprazole Sodium [Protonix] 20 mg PO DAILY 10/12/17 10/16/18 Simvastatin [Zocor] 40 mg PO DAILY 10/12/17 10/16/18 Telmisartan [Micardis] 80 mg PO DAILY 10/27/17 10/16/18 Meloxicam [Mobic] 7.5 mg PO DAILY PRN #20 tablet 06/23/18 10/16/18 SITagliptin [Januvia] 1 tab PO DAILY 10/16/18 10/16/18 Sucralfate [Carafate] 1 gm PO QID 10/16/18 10/16/18 amLODIPine [Norvasc] 5 mg PO DAILY 10/16/18 10/16/18 Cefdinir 300 mg PO BID #14 capsule 10/29/19 Azithromycin [Zithromax] 250 mg PO DAILY #4 tablet 05/13/20 - Allergies Allergies/Adverse Reactions: Allergies Allergy/AdvReac Type Severity Reaction Status Date / Time No Known Drug Allergies Allergy Verified 10/29/19 14:21 - Social History Does the pt smoke?: No Smoking Status: Never smoker Does the pt drink ETOH?: No Does the pt have substance abuse?: No - Immunizations Immunizations are current?: Yes - POLST Patient has POLST: No PD ED PE NORMAL - Vitals Vital signs reviewed: Yes - General General: Alert and oriented X 3, No acute distress, Well developed/nourished - HEENT HEENT: PERRL, EOMI - Extremities Extremities: No deformity, No tenderness to palpate, Normal ROM s pain - Neuro Neuro: Alert and oriented X 3, 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, No motor deficit, No sensory deficit, Normal speech Eye Opening: Spontaneous Motor: Obeys Commands Verbal: Oriented GCS Score: 15 - Psych Psych: Normal mood, Normal affect PD ED PE EXPANDED - HEENT HEENT Visual: 1 - swelling, tenderness - Neck Neck: Soft tissue TTP (left paracervical, posteriorly and upper cervical spine) Results - Vitals Vitals: Vital Signs - 24 hr 05/13/20 05/13/20 05/13/20 00:25 02:31 03:04 Temperature 36.5 C Heart Rate 78 71 86 Respiratory 16 18 17 Rate Blood Pressure 222/94 H 185/85 H 169/75 H O2 Saturation 100 99 100 Oxygen O2 Source Room air - Rads (name of study) CTH Radiology: Prelim report reviewed, See rad report CT cervical spine Radiology: Prelim report reviewed, See rad report PD MEDICAL DECISION MAKING - ED course Complexity details: reviewed results, re-evaluated patient, considered differential, d/w patient, d/w family Departure - Departure Disposition: 01 Home, Self Care Clinical Impression: Contusion of head, Pneumonia Condition: Good Instructions: ED Head Injury Closed Sleep Mon, ED Pneumonia Adult Prescriptions: Azithromycin [Zithromax] 250 mg PO DAILY #4 tablet Comments: As we discussed, the CT scan of your neck shows a number of degenerative changes (arthritic changes that have developed over time), but no acute/new/concerning findings. However, the CT scan also shows the very top of your lungs and it appears there is a pneumonia (both sides, mostly on right); this is an incidental finding, but I will start you on an antibiotic to cover possible pneumonia. Discharge Date/Time: 05/13/20 03:39
[2020-05-13] MEDS ORDERED: AZITHROMYCIN 250 MG TABLET PO STA (02:56)
[2020-05-13 03:05] VITALS: BP 169/75
--- NOTE | 2020-05-13 07:21 | CT Report ---
PROCEDURE: HEAD WO INDICATIONS: fall, head injury, headache TECHNIQUE: Noncontrast 4.5 mm thick angled axial sections acquired from the foramen magnum to the vertex. For r adiation dose reduction, the following was used: automated exposure control, adjustment of mA and/or kV according to patient size. COMPARISON: MRI brain 07/28/[address] head 10/16/2018. FINDINGS: Image quality: Excellent. CSF spaces: Basal cisterns are patent. No extra-axial fluid collections. The ventricles are symmet lorin in size and shape. Brain: No intracranial masses. Small bilateral frontal-parietal subdural hygromas versus chronic s ubdural hematomas slightly decreased in size compared to prior images. No acute intracranial hemorrha ge. There is cerebral volume loss for age, with resultant ventricular and sulcal prominence. There a re periventricular and deep white matter chronic small vessel ischemic changes. There is intracrania l internal carotid artery atherosclerosis. Skull and face: Calvarium and visualized facial bones appear intact, without suspicious lesions. Sinuses: Visualized sinuses and mastoids are clear. IMPRESSION: No acute intracranial disease process. Reviewed by: Sabrina Morgan MD, PhD on 05/13/2020 7:20 AM PDT Approved by: Sabrina Morgan MD, PhD on 05/13/2020 7:20 AM PDT Station ID: [id number]
--- NOTE | 2020-05-13 07:27 | CT Report ---
PROCEDURE: CERVICAL SPINE WO INDICATIONS: fall, neck pain, tenderness TECHNIQUE: Noncontrast 3 mm thick sections acquired from the skull base to the T4 level. Sagittal and coronal r eformats were then constructed. For radiation dose reduction, the following was used: automated exp osure control, adjustment of mA and/or kV according to patient size. COMPARISON: None. FINDINGS: Image quality: Excellent. Bones: No fractures or dislocations. Visualized superior ribs are intact. Soft tissues: Prevertebral soft tissues are normal in thickness. No paravertebral hematomas. No ap ical pneumothoraces. Scattered alveolar opacities in the lung apices bilaterally and small area of fo mando consolidation lung apex. Small subcentimeter hypoattenuating nodules noted in the thyroid gland. IMPRESSION: 1. No fracture. No acute osseous lesion. If there is continued clinical concern for pathology, then M RI should be considered for further evaluation. 2. Patchy alveolar opacities in the lung apices bilaterally and small area of consolidation in the ri ght lung apex. Finding is nonspecific, but may represent infectious process. Please correlate with c linical and laboratory data. Reviewed by: Sabrina Morgan MD, PhD on 05/13/2020 7:26 AM PDT Approved by: Sabrina Morgan MD, PhD on 05/13/2020 7:26 AM PDT Station ID: [id number]
== END 2020-05-13 03:39 | disposition home or self-care (01) ==
LOC: ED 00:14
DX: S00.93XA Contusion of unspecified part of head, initial encounter (principal); J18.9 Pneumonia, unspecified organism; W01.198A Fall on same level from slipping, tripping and stumbling with subsequent striking against other object, initial encounter; Y92.007 Garden or yard of unspecified non-institutional (private) residence as the place of occurrence of the external cause; E11.9 Type 2 diabetes mellitus without complications; I10 Essential (primary) hypertension
CPT/HCPCS: 70450; 72125; 99284; A9270

== ENCOUNTER 2020-09-16 14:27 | Emergency (ER) | payer MEDICARE, OTHER ==
--- NOTE | 2020-09-16 16:10 | ED Physician Documentation ---
History of Present Illness - Stated complaint Stated Complaint: GLF - Chief complaint Chief Complaint: Trauma Ext - History obtained from History obtained from: Patient, Family - Additonal information Additional information: Patient is brought to the ED by her son, who states that the patient took a fall off her bed yesterday and now has right shoulder and neck pain. Patient states that is mostly her right lateral neck that hurts and that she has no bony pain. Son has noted limited range of motion of the right shoulder, secondary to pain. He states he is concerned because the patient has history of diabetes and also has had chronic edema in her lower legs and feet. She has diabetic neuropathy and so she does not feel her feet very well when she walks. This combined with the swelling seems to make her more prone to falls. The patient states she does not use a walker when she walks around at home. The fall that the patient took last night was from the edge of her bed, where she was sitting. She simply lost her balance. No focal deficits. She did not hit her head or lose consciousness. The patient has had lower extremity edema for years, though this does seem to fluctuate. The son states that he does not notice any improvement anymore with diuretics. Patient is not known to have congestive heart failure. No other complaints at this time. No hip pain or back pain. No abdominal pain or difficulty breathing. Review of Systems Ten Systems: 10 systems reviewed and negative Constitutional: reports: Reviewed and negative Eyes: reports: Reviewed and negative Ears: reports: Reviewed and negative Nose: reports: Reviewed and negative Throat: reports: Reviewed and negative Cardiac: reports: Reviewed and negative Respiratory: reports: Reviewed and negative GI: reports: Reviewed and negative : reports: Reviewed and negative Skin: reports: Reviewed and negative Musculoskeletal: reports: Neck pain, Extremity swelling Neurologic: reports: Reviewed and negative Psychiatric: reports: Reviewed and negative Endocrine: reports: Reviewed and negative Immunocompromised: reports: Reviewed and negative PD PAST MEDICAL HISTORY - Past Medical History Cardiovascular: Hypertension, High cholesterol Respiratory: None Neuro: None Endocrine/Autoimmune: Type 2 diabetes GI: None 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 : None HEENT: None Psych: None Musculoskeletal: Osteoarthritis Derm: None - Past Surgical History Past Surgical History: Yes General: Cholecystectomy, Appendectomy - Present Medications Home Medications: Ambulatory Orders Medication Instructions Recorded Confirmed Pantoprazole Sodium [Protonix] 20 mg PO DAILY 10/12/17 10/16/18 Simvastatin [Zocor] 40 mg PO DAILY 10/12/17 10/16/18 Telmisartan [Micardis] 80 mg PO DAILY 10/27/17 10/16/18 Meloxicam [Mobic] 7.5 mg PO DAILY PRN #20 tablet 06/23/18 10/16/18 SITagliptin [Januvia] 1 tab PO DAILY 10/16/18 10/16/18 Sucralfate [Carafate] 1 gm PO QID 10/16/18 10/16/18 amLODIPine [Norvasc] 5 mg PO DAILY 10/16/18 10/16/18 Cefdinir 300 mg PO BID #14 capsule 10/29/19 Azithromycin [Zithromax] 250 mg PO DAILY #4 tablet 05/13/20 - Allergies Allergies/Adverse Reactions: Allergies Allergy/AdvReac Type Severity Reaction Status Date / Time No Known Drug Allergies Allergy Verified 09/16/20 14:34 - Social History Does the pt smoke?: No Smoking Status: Never smoker Does the pt drink ETOH?: No Does the pt have substance abuse?: No - Immunizations Immunizations are current?: Yes - POLST Patient has POLST: No PD ED PE NORMAL - Vitals Vital signs reviewed: Yes - General General: Alert and oriented X 3, No acute distress, Well developed/nourished - HEENT HEENT: Atraumatic, PERRL, EOMI, Moist mucous membranes - Neck Neck: Supple, no meningeal sign, No bony TTP - Cardiac Cardiac: RRR, No murmur, Strong equal pulses - Respiratory Respiratory: No respiratory distress, Clear bilaterally - Abdomen Abdomen: Soft, Non tender, Non distended - Back Back: No spinal TTP - Derm Derm: Normal color, Warm and dry, No rash, Other (Contusion of right lateral clavicle/anterior shoulder.) - Extremities Extremities: No deformity, No calf tenderness / cord, Other (Contusion over anterior right shoulder as noted above. No laceration or abrasion. 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, No motor deficit, No sensory deficit, Normal speech - Psych Psych: Normal mood, Normal affect Results - Vitals Vitals: Vital Signs - 24 hr 09/16/20 09/16/20 09/16/20 14:34 16:42 17:51 Temperature 36.2 C L 36.8 C Heart Rate 95 101 H 70 Respiratory 18 17 19 Rate Blood Pressure 172/77 H 168/91 H 155/90 H O2 Saturation 98 100 100 09/16/20 18:00 Temperature Heart Rate 70 Respiratory 20 Rate Blood Pressure 155/90 H O2 Saturation 100 Oxygen O2 Source Room air - Labs Labs: Laboratory Tests 09/16/20 15:25 B-Natriuretic Peptide 195 H - Rads (name of study) XR R shoulder Radiology: Final report received, EMP read indepedently, See rad report CXR Radiology: Final report received, EMP read indepedently, See rad report (NAD) PD MEDICAL DECISION MAKING - ED course Complexity details: reviewed results, re-evaluated patient, considered differential, d/w patient, d/w family ED course: Patient was worked up with a BNP, which was mildly elevated. Chest x-ray was unremarkable for acute findings and right shoulder x-ray was also negative. We have discussed symptomatic management at home. I have prescribed 2 pairs of compression stockings for the patient, 1 with moderate support and 1 with firm support. I have instructed the son that is very important that the patient wears these as an adjunct to the diuretics that she is on. We have also discussed elevation of her to help with the edema. I have advised the patient and son that the patient should use her walker when ambulating if she is feeling unsteady or having a difficult time feeling her feet, due to her neuropathy. We have discussed the usual indications for return. Departure - Departure Disposition: 01 Home, Self Care Clinical Impression: Peripheral edema Contusion of shoulder, right Qualifiers: Encounter type: initial encounter Qualified Code(s): S40.011A - Contusion of right shoulder, initial encounter Condition: Stable Instructions: ED Edema Legs Bilateral, ED Contusion Shoulder Comments: The shoulder x-ray and chest x-ray both look good. There is some arthritis in the shoulder, but no evidence of a broken bone. Additionally, there is no fluid in the lungs or evidence of enlarged heart. At this point in time, it appears that there is a bruise of the left right shoulder, but nothing worse. As far as the swelling in the legs and difficulty walking, please consider getting the pressure stockings to help work some of the fluid out of the legs. Additionally, it would not be a bad idea for you to walk with a walker to help you keep your balance and be a little steadier on your feet. Please make an appointment as soon as possible to follow-up with your primary care physician to discuss these issues in further detail. Discharge Date/Time: 09/16/20 18:10
--- NOTE | 2020-09-16 16:42 | XRAY Report ---
PROCEDURE: Shoulder 3 View RT INDICATIONS: fall/pain/limited ROM TECHNIQUE: 3 views of the shoulder were acquired. COMPARISON: None. FINDINGS: Bones: No definite acute fractures or dislocations but there is severe glenohumeral joint degenerati ve osteoarthritis with [id number] articulation and also near severe AC joint osteoarthritis. The up per outer border of the humeral head articular surface is mildly irregular, in a pattern potentially a manifestation of prior trauma.. No suspicious bony lesions. Visualized ribs appear intact. Soft tissues: No suspicious soft tissue calcifications. IMPRESSION: No definite acute trauma found but there is severe glenohumeral joint osteoarthritis, mo derately severe acromioclavicular joint degenerative change, and also suspected old trauma to the hum eral head given the irregularity at the upper outer border of the articular surface as noted. Reviewed by: Chepe Ontiveros MD on 09/16/2020 4:40 PM PST Approved by: Chepe Ontiveros MD on 09/16/2020 4:40 PM [facility] Station ID: [id number]
--- NOTE | 2020-09-16 16:44 | XRAY Report ---
PROCEDURE: Chest 1 View X-Ray INDICATIONS: SOB, LE edema TECHNIQUE: One view of the chest was acquired. COMPARISON: Shoulder plain films same day reviewed on the right. FINDINGS: Surgical changes and devices: None. Lungs and pleura: No pleural effusions or pneumothorax. Lungs are abnormal with a chronic interstit ial prominence greater on the right than the left. Mediastinum: Mediastinal contours appear normal. Heart size is normal. Bones and chest wall: No suspicious bony lesions that would indicate infection or neoplasm but there is prominent degenerative change at the glenohumeral joint on the right and moderately severe such d egeneration at the AC joints bilaterally.. Overlying soft tissues appear unremarkable. IMPRESSION: No osseous fracture found. Degenerative changes as discussed greater on the right than the left, at e ach shoulder. Chronic interstitial prominence, suspect prior smoking history. Cardiomegaly is not cur rently present. No definite acute CHF. Reviewed by: Chepe Ontiveros MD on 09/16/2020 4:42 PM PST Approved by: Chepe Ontiveros MD on 09/16/2020 4:42 PM PST Station ID: [id number]
[2020-09-16 17:53] VITALS: BP 155/90
== END 2020-09-16 18:10 | disposition home or self-care (01) ==
LOC: ED 14:27
DX: S40.011A Contusion of right shoulder, initial encounter (principal); W06.XXXA Fall from bed, initial encounter; E11.40 Type 2 diabetes mellitus with diabetic neuropathy, unspecified; Z79.4 Long term (current) use of insulin
CPT/HCPCS: 83880; 99284; 99285

== ENCOUNTER 2020-10-03 16:23 | Outpatient (CLI) | payer MEDICARE, OTHER | END 2020-10-03 16:24 | disposition critical access hospital (66) | LOC: EMS 16:23 | PROVIDERS: ATTEND Surgery | DX: R40.3 Persistent vegetative state (principal); R22.0 Localized swelling, mass and lump, head | CPT/HCPCS: A0425; A0429 ==

== ENCOUNTER 2020-10-03 16:47 | Emergency (ER) | payer MEDICARE, OTHER ==
--- NOTE | 2020-10-03 17:24 | ED Physician Documentation ---
History of Present Illness - Stated complaint Stated Complaint: GLF - Chief complaint Chief Complaint: Neuro - Additonal information Additional information: 89-year-old female brought to the emergency department for evaluation of facial trauma after a ground-level fall this afternoon. She reports walking to the bathroom and her dogs got in the way. She lost balance falling forward striking her face on the door jam. She is unable to get up on her own at home and her son called 911. Here in the emergency department she has right periorbital swelling and reports mild headache and neck pain and right shoulder pain. She recently had an x-ray completed of the shoulder due to a longstanding history of pain. Patient is not anticoagulated. Did not lose consciousness with the fall. Denies pain elsewhere. Review of Systems Constitutional: reports: Reviewed and negative Eyes: reports: Other (right periorbital swelling/ecchymosis) Ears: reports: Reviewed and negative Nose: reports: Reviewed and negative Throat: reports: Reviewed and negative Cardiac: reports: Reviewed and negative Respiratory: reports: Reviewed and negative GI: reports: Reviewed and negative : reports: Reviewed and negative Skin: reports: Other (Right periorbital swelling and ecchymosis.) Musculoskeletal: reports: Neck pain, Joint pain (right shoulder) Neurologic: reports: Headache, Head injury. 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 : None HEENT: None Psych: None Musculoskeletal: Osteoarthritis Derm: None - Past Surgical History Past Surgical History: Yes General: Cholecystectomy, Appendectomy - Present Medications Home Medications: Ambulatory Orders Medication Instructions Recorded Confirmed Pantoprazole Sodium [Protonix] 20 mg PO DAILY 10/12/17 10/16/18 Simvastatin [Zocor] 40 mg PO DAILY 10/12/17 10/16/18 Telmisartan [Micardis] 80 mg PO DAILY 10/27/17 10/16/18 Meloxicam [Mobic] 7.5 mg PO DAILY PRN #20 tablet 06/23/18 10/16/18 SITagliptin [Januvia] 1 tab PO DAILY 10/16/18 10/16/18 Sucralfate [Carafate] 1 gm PO QID 10/16/18 10/16/18 amLODIPine [Norvasc] 5 mg PO DAILY 10/16/18 10/16/18 Cefdinir 300 mg PO BID #14 capsule 10/29/19 Azithromycin [Zithromax] 250 mg PO DAILY #4 tablet 05/13/20 Acetaminophen [Tylenol] 650 mg PO Q6H PRN #30 tab 10/03/20 - Allergies Allergies/Adverse Reactions: Allergies Allergy/AdvReac Type Severity Reaction Status Date / Time No Known Drug Allergies Allergy Verified 09/16/20 14:34 - Social History Does the pt smoke?: No Smoking Status: Never smoker Does the pt drink ETOH?: No Does the pt have substance abuse?: No - Immunizations Immunizations are current?: Yes - POLST Patient has POLST: No PD ED PE EXPANDED - General General: Alert, No acute distress, Well developed/nourished - HEENT HEENT: Head injury, PERRL, EOMI, Ears normal, Other (Periorbital swelling without crepitus or deformity right eye. No bruising or bleeding noted in the posterior occiput. Negative for raccoon or battles sign) - Neck Neck: Supple w/out meningeal sx, Soft tissue TTP. No: Bony TTP - Cardiac Cardiac: Regular Rate, Radial strong equal, Pedal strong equal, Cap refill < 2 sec - Respiratory Respiratory: Clear to ausultation stan. No: Distress, Labored - Abdomen Abdomen: Normal Bowel sounds. No: Tender to palpation - Derm Derm: Bruising (rigth periorbital) - Extremities Extremities: Tenderness, Right shoulder (Tenderness at AC joint right shoulder without deformity.) - Neuro Neuro: Alert and Oriented X 3, CNII-XII intact, Normal finger nose, Normal speech - GCS Eye Opening: Spontaneous Motor: Obeys Commands Verbal: Oriented Total: 15 Results - Vitals Vitals: Vital Signs - 24 hr 10/03/20 10/03/20 16:53 17:58 Temperature 36.8 C Heart Rate 81 85 Respiratory 18 18 Rate Blood Pressure 153/74 H 126/72 O2 Saturation 98 99 Oxygen O2 Source Room air - Rads (name of study) right shoulder xr Radiology: Final report received (Osteoarthritis. No acute fracture.) CT head Radiology: Final report received (No acute intracranial abnormality) CT neck Radiology: Final report received (No acute fracture or dislocation) PD MEDICAL DECISION MAKING - ED course Complexity details: reviewed results, re-evaluated patient, considered differential, d/w patient, d/w family ED course: 89-year-old female was brought into the emergency department for evaluation of a hematoma surrounding her right eye after a mechanical fall this afternoon in which she lost balance as her dogs were walking a negative restorer she fell into the door jam. There was no loss of consciousness. Here in the emergency department patient reported some neck and head pain. CT of head and neck does not show any broken facial bones or bruising bleeding on the spinal fractures are noted. 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 Patient has chronic arthritis in the right shoulder but again no fracture was seen. Here in the emergency department she was ambulated with minimal assist but was s omewhat unsteady. a walker was ordered for safety. I discussed this ED visit with her son Car on the phone. He is staying with her right now and will continue to monitor her over the next few days. Patient will schedule follow-up with her primary care doctor. Emergent worsen return precautions discussed for sudden severe headache, uncontrolled vomiting or fevers. Departure - Departure Disposition: 01 Home, Self Care Clinical Impression: Fall from ground level Traumatic hematoma of face Qualifiers: Encounter type: initial encounter Qualified Code(s): S00.83XA - Contusion of other part of head, initial encounter Right shoulder pain Qualifiers: Chronicity: chronic Qualified Code(s): M25.511 - Pain in right shoulder; G89.29 - Other chronic pain Condition: Stable Record reviewed to determine appropriate education?: Yes Instructions: ED Hematoma Prescriptions: Acetaminophen [Tylenol] 650 mg PO Q6H PRN #30 tab PRN Reason: Pain Comments: Krystle Was seen in the emergency department 2-day after a fall at home. She has a fair amount of bruising around her right eye. Fortunately however the CT scan did not show any broken bones or bleeding on her in the brain. This hematoma will resolve with time over the next [address] of her neck also showed no broken bones though she does have degenerative disc disease. An x-ray of her shoulder was also without findings of broken bones, though she does have arthritis in it. She may feel a little woozy and unstable over the next few days. We have ordered a walker to be used at home to make sure that she does not have any further falls. If at any point she develops fevers, has suddenly severe headache, is acting inappropriate or has uncontrolled vomiting please return to the ER for a second evaluation. Please discuss this ED visit with her primary care doctor in follow-up.
--- NOTE | 2020-10-03 17:44 | CT Report ---
PROCEDURE: HEAD WO INDICATIONS: facial trauma TECHNIQUE: Noncontrast 4.5 mm thick angled axial sections acquired from the foramen magnum to the vertex. For r adiation dose reduction, the following was used: automated exposure control, adjustment of mA and/or kV according to patient size. COMPARISON: None. FINDINGS: Image quality: Excellent. CSF spaces: Basal cisterns are patent. No extra-axial fluid collections. Ventricles are normal in size and shape. Brain: No midline shift. No intracranial masses or hemorrhage. Klein-white matter interface is norm al. Skull and face: Calvarium and visualized facial bones are intact, without suspicious lesions. Sinuses: Visualized sinuses and mastoids are clear. IMPRESSION: No acute intracranial abnormality. Reviewed by: Kelechi Cruz MD on 10/03/2020 5:42 PM PST Approved by: Kelechi Cruz MD on 10/03/2020 5:42 PM [facility] Station ID: [id number]
--- NOTE | 2020-10-03 17:45 | CT Report ---
PROCEDURE: CERVICAL SPINE WO INDICATIONS: GLF neck pain TECHNIQUE: Noncontrast 3 mm thick sections acquired from the skull base to the T4 level. Sagittal and coronal r eformats were then constructed. For radiation dose reduction, the following was used: automated exp osure control, adjustment of mA and/or kV according to patient size. COMPARISON: None. FINDINGS: Image quality: Excellent. Bones: No fractures or dislocations. Visualized superior ribs are intact. Soft tissues: Prevertebral soft tissues are normal in thickness. No paravertebral hematomas. No ap ical pneumothoraces. IMPRESSION: No fracture. Reviewed by: Kelechi Cruz MD on 10/03/2020 5:44 PM PST Approved by: Kelechi Cruz MD on 10/03/2020 5:44 PM [facility] Station ID: [id number]
--- NOTE | 2020-10-03 17:55 | XRAY Report ---
PROCEDURE: Shoulder 2 View RT INDICATIONS: GLF TECHNIQUE: 2 views of the shoulder were acquired. COMPARISON: None. FINDINGS: Bones: No fractures or dislocations. No suspicious bony lesions. Visualized ribs appear intact. M oderate periarticular osteophyte formation at the acromioclavicular and glenohumeral joints. Soft tissues: No suspicious soft tissue calcifications. IMPRESSION: Osteoarthritis. No acute fracture. No osseous lesion. If symptoms and/or clinical suspic ion for pathology continue, further assessment with repeat plain films, or advanced imaging (e.g., CT , MRI, or bone scan) is recommended for further assessment. Reviewed by: Kelechi Crzu MD on 10/03/2020 5:53 PM PST Approved by: Kelechi Cruz MD on 10/03/2020 5:53 PM PST Station ID: [id number]
[2020-10-03 18:11] VITALS: BP 126/72
== END 2020-10-03 19:01 | disposition home or self-care (01) ==
LOC: EDUNIT# → ED 16:47
DX: S00.83XA Contusion of other part of head, initial encounter (principal); S00.11XA Contusion of right eyelid and periocular area, initial encounter; W01.198A Fall on same level from slipping, tripping and stumbling with subsequent striking against other object, initial encounter; Y93.01 Activity, walking, marching and hiking; Y92.002 Bathroom of unspecified non-institutional (private) residence as the place of occurrence of the external cause; M19.011 Primary osteoarthritis, right shoulder; M50.30 Other cervical disc degeneration, unspecified cervical region; I10 Essential (primary) hypertension; E11.9 Type 2 diabetes mellitus without complications; Z79.84 Long term (current) use of oral hypoglycemic drugs
CPT/HCPCS: 99284

== ENCOUNTER 2021-01-04 13:44 | Outpatient (CLI) | payer MEDICARE, OTHER | END 2021-01-04 23:59 | disposition EMS.NT | LOC: EMS 13:44 | DX: R25.8 Other abnormal involuntary movements (principal); Z53.29 Procedure and treatment not carried out because of patient's decision for other reasons ==

== ENCOUNTER 2021-01-16 08:00 | Outpatient (CLI) | payer MEDICARE, OTHER ==
[2021-01-16 17:51] LABS: BASOPHILS # (AUTO) 0.1 10^3/uL (0.0-0.1); BASOPHILS % (AUTO) 0.6 %; EOSINOPHILS # (AUTO) 0.5 10^3/uL (0.0-0.7); EOSINOPHILS % (AUTO) 5.1 %; HCT - HEMATOCRIT 34.9 % (37.0-47.0); HGB - HEMOGLOBIN 10.7 g/dL (12.0-16.0); LYMPHOCYTES # (AUTO) 1.2 10^3/uL (1.5-3.5); LYMPHOCYTES % (AUTO) 13.3 %; MEAN CORPUSCULAR HEMOGLOBIN 27.2 pg (27.0-31.0); MEAN CORPUSCULAR HGB CONC 30.7 g/dL (32.0-36.0); MEAN CORPUSCULAR VOLUME 88.8 fL (81.0-99.0); MONOCYTES # (AUTO) 0.4 10^3/uL (0.0-1.0); NEUTROPHILS # (AUTO) 6.6 10^3/uL (1.5-6.6); NEUTROPHILS % (AUTO) 75.3 %; PLT - PLATELET COUNT 347 10^3/uL (130-450); RED BLOOD COUNT 3.93 10^6/uL (4.20-5.40); RED CELL DISTRIBUTION WIDTH 13.7 % (12.0-15.0); WHITE BLOOD COUNT 8.8 x10^3/uL (4.8-10.8)
[2021-01-16 18:17] LABS: ALBUMIN 3.2 g/dL (3.2-5.5); ALBUMIN/GLOBULIN RATIO 0.7 (1.0-2.2); BILIRUBIN,TOTAL 0.6 mg/dL (0.2-1.0); CREATININE 0.8 mg/dL (0.4-1.0); POTASSIUM 4.9 mmol/L (3.5-5.0); TOTAL PROTEIN 7.6 g/dL (6.7-8.2)
[2021-01-16 18:21] LABS: THYROID STIMULATING HORMONE 1.41 uIU/mL (0.34-5.60)
[2021-01-16 20:38] LABS: ESTIMATED AVERAGE GLUCOSE 134 mg/dL (70-100); HEMOGLOBIN A1c% 6.3 % (4.27-6.07)
== END 2021-01-16 23:59 | disposition home or self-care (01) ==
LOC: LAB.N 08:00
PROVIDERS: ATTEND Family Medicine
DX: I10 Essential (primary) hypertension (principal); E11.9 Type 2 diabetes mellitus without complications
CPT/HCPCS: 36415; 80053; 83036; 84443; 85025